=== PATIENT | female | born 1945 | race Caucasian/White ===

== ENCOUNTER 2017-03-17 11:26 | Inpatient (IN) | payer MEDICARE, OTHER ==
[~2017-03-17] VITALS: Ht 160 cm; Wt 122.0 kg
[~2017-03-17 11:26] MED LIST: ALBU8.5H5 INH; BEN25 PO; CLIN-73 PO; METF500T PO; ONDA4TAB35 PO; OXYB5TAB7 PO; PANT40TA4 PO; PRED20TA PO; REPA2TAB6 GTB; SENN-36 PO; SITA100T8 GTB
--- NOTE | 2017-03-17 12:13 | RADRPT ---
PROCEDURE: Chest x-ray CLINICAL INDICATION: Chest pain TECHNIQUE: Chest single view COMPARISON: 07/08/2015 FINDINGS: There is stable mild cardiomegaly and an sclerotic aortic calcification. The pulmonary vessels are n ormal in caliber. The lungs are clear. The costophrenic angles are sharp. The visualized bony tho rax is unremarkable. IMPRESSION: No acute cardiopulmonary disease. Stable cardiomegaly and atherosclerotic aortic calcification RPTAT: HH .Johnny Canas MD, Date Time Electronically viewed and signed by .Johnny Canas MD, on 03/17/2017 12:13 .W/
[2017-03-17 12:24] LABS: ADD SCAN DIFF NO
[2017-03-17] MEDS ORDERED: DILTIAZEM 25 MG INJ IV ONE (12:30)
[2017-03-17 12:36] LABS: CHLORIDE 97 mmol/L (97-110); SODIUM 138 mmol/L (135-144)
[2017-03-17 12:37] LABS: POTASSIUM 3.9 mmol/L (3.5-5.1)
[2017-03-17 12:39] LABS: CREATININE 0.62 mg/dl (0.44-1.00)
[2017-03-17 12:40] LABS: ANION GAP 17 (8-16); BLOOD UREA NITROGEN 17 mg/dl (7-20); CALCIUM 9.3 mg/dl (8.4-10.2); CARBON DIOXIDE 28 mmol/L (21-31); GLUCOSE 259 mg/dl (70-220)
[2017-03-17 12:43] LABS: BASOPHIL # 0.1 10^3/ul (0.0-0.1); BASOPHILS % 0.5 % (0.0-2.0); EOSINOPHILS # 0.1 10^3/ul (0.0-0.5); EOSINOPHILS % 1.4 % (0.0-7.0); HEMATOCRIT 45.6 % (37.0-47.0); HEMOGLOBIN 15.3 g/dl (12.0-16.0); LYMPHOCYTES # 1.9 10^3/ul (0.8-2.9); LYMPHOCYTES % 20.2 % (15.0-51.0); MEAN CORPUSCULAR HEMOGLOBIN 31.3 pg (29.0-33.0); MEAN CORPUSCULAR HGB CONC 33.6 g/dl (32.0-37.0); MEAN CORPUSCULAR VOLUME 93.3 fl (82.0-101.0); MEAN PLATELET VOLUME 10.5 fl (7.4-10.4); MONOCYTE # 0.5 10^3/ul (0.3-0.9); MONOCYTES % 5.5 % (0.0-11.0); NEUTROPHIL # 6.9 10^3/ul (1.6-7.5); PLATELET COUNT 287 10^3/UL (140-415); RED BLOOD COUNT 4.89 10^6/ul (4.20-5.40); RED CELL DISTRIBUTION WIDTH 12.9 % (11.5-14.5); WHITE BLOOD COUNT 9.6 10^3/ul (4.8-10.8)
[2017-03-17] MEDS: DILTIAZEM-D5W 125MG/125ML DRIP 125 ML IV SCH (12:45)
[2017-03-17 12:50] LABS: B-TYPE NATRIURETIC PEPTIDE 1130 PG/ML (0-125)
[2017-03-17 12:55] LABS: TROPONIN-I < 0.012 ng/ml (0.00-0.12)
[2017-03-17 13:01] LABS: INR 0.99; PARTIAL THROMBOPLASTIN TIME 27.8 Sec (25.0-35.0); PROTIME 13.1 Sec (12.2-14.2)
[2017-03-17] MEDS ORDERED: IPRATROPIUM (NEB) 0.5 MG/2.5 ML AMP HHN ONE (13:49)
[2017-03-17] MEDS ORDERED: LEVALBUTEROL (NEB) 1.25 MG/0.5 ML AMP HHN ONE (13:49)
[2017-03-17] MEDS ORDERED: METOPROLOL 5 MG INJ IV ONE (14:30)
[2017-03-17] MEDS ORDERED: METF500T4 PO (14:34)
[2017-03-17] MEDS ORDERED: ONDANSETRON 4 MG INJ IV PRN (15:00)
[2017-03-17] MEDS ORDERED: ACETAMINOPHEN 325 MG TAB PO PRN (15:00)
[2017-03-17] MEDS ORDERED: NACL 0.9% 3 ML SYG IV SCH (16:00)
[2017-03-17] MEDS ORDERED: LORAZEPAM 0.5 MG TAB PO PRN (16:00)
[2017-03-17] MEDS ORDERED: DOCUSATE SODIUM 100 MG CAP PO PRN (16:00)
[2017-03-17] MEDS ORDERED: ONDANSETRON 4 MG TAB PO PRN (16:00)
[2017-03-17] MEDS ORDERED: ALBUTEROL 18 GM INHALER INH PRN (16:00)
[2017-03-17] MEDS ORDERED: NITROGLYCERIN (SL) 0.4 MG TAB SL PRN (16:00)
[2017-03-17] MEDS ORDERED: GLUCOSE GEL 15 GRAM TUBE BUCCAL PRN (16:30)
[2017-03-17] MEDS ORDERED: GLUCOSE GEL 15 GRAM TUBE PO PRN ×2 (16:30)
[2017-03-17] MEDS ORDERED: GLUCAGON 1 MG INJ IM PRN (16:30)
[2017-03-17] MEDS ORDERED: DEXTROSE 50% 50 ML SYRINGE IV PRN ×2 (16:30)
--- NOTE | 2017-03-17 17:26 | HP ---
DATE OF ADMISSION: 03/17/2017 ENVIRONMENTAL PROGRAM MANAGER: Dr. Lois Dewitt, senior policy analyst. CHIEF COMPLAINT: Shortness of breath and lower extremity edema, palpitation. HISTORY OF PRESENT ILLNESS: This is a pleasant 71-year-old female with past medical history of morb id obesity, anxiety, hypertension, diabetes mellitus, COPD, questionable congestive heart failure, l ower extremity edema, who has been having worsening of the lower extremity edema and shortness of br eath. The shortness of breath is exacerbated by activity. The patient also stated that she has bee n sleeping in an inclined position, although this is not secondary to having paroxysmal nocturnal dy spnea. This is secondary to patient having low back pain, and she is not able to lie flat on her ba ck due to the pain in her lumbar region. Upon arrival to emergency room, patient's chest x-ray ic h demonstrated no acute cardiopulmonary disease, stable cardiomegaly without sclerotic aortic calcif ication. EKG was obtained which showed new onset atrial fibrillation with RVR at the rate of 142. The patient was treated with a dose of metoprolol, Xopenex, Atrovent, Cardizem. At this time, the p atient's heart rate has improved to 114. The rest of the vitals are stable. At this time, the jose ent denies having any chest pain, mild shortness of breath. No neck pain, no restricted range of mo tion. No heat and cold intolerance. No abdominal pain, nausea, vomiting, diarrhea. No change in t he color of stool. No recent travel history. No sick contact or any other discomfort. PAST MEDICAL AND SURGICAL HISTORY: As above per HPI. MEDICATIONS: 1. Albuterol. 2. Metformin. ALLERGIES: SULFA. SOCIAL HISTORY: Negative x3 for smoking, alcohol, illicit drugs. Lives at home with a roommate. REVIEW OF SYSTEMS: As above per HPI, otherwise 12 review of systems found to be negative. PHYSICAL EXAMINATION: VITAL SIGNS: Temperature 98.6, pulse 114, respiration rate 20, blood pressure 130/65, oxygen 98% on 2 liters via nasal cannula. GENERAL APPEARANCE: The patient is sitting on the edge of the bed comfortably without any acute dis tress. She is awake, alert, oriented. She is able to answer my questions properly. Body habitus i s morbidly obese with a BMI of 39.9 with 102 kilograms. EYES AND ENT: Conjunctivae and lids are normal. Pupils are normal. Extraocular muscles are normal . Hearing grossly normal. Lips and gums are normal. Oral mucosa mildly dry. NECK: Supple. Trachea is midline. No lymphadenopathy. RESPIRATORY: Effort is normal. Clear to auscultation bilaterally. CARDIOVASCULAR: Normal S1, S2. Regular rhythm and rate. No murmur, no bruits, no edema. Peripher al pulses, radial pulses palpable. Cap refill is normal. CHEST: Normal expansion of thorax during inspiration. GASTROINTESTINAL: Abdomen is soft, nontender, not distended. Bowel sounds present. No guarding, n o rebound. GENITOURINARY: Deferred. MUSCULOSKELETAL: Upper and lower extremities within normal limits. Full range of motion was positi ve nonpitting edema bilateral lower extremity, positive stasis dermatitis in bilateral lower extremi ties. NEUROLOGIC: Cranial nerves II through XII are grossly intact. PSYCHIATRIC: Normal judgment and insight. Alert and oriented x3. Mood and affect is normal. LABORATORY WORK AND IMAGING: WBC 9.6, hemoglobin 15.3, hematocrit 45.6, platelets 287. Sodium 138, potassium 3.9, chloride 97, bicarbonate 28, BUN 17, creatinine 0.62, glucose 259, calcium 9.3. Tro ponin negative. BNP 1130. PT at 13.1, INR 0.99. ASSESSMENT AND PLAN: 1. Atrial fibrillation with rapid ventricular response. The patient is status post metoprolol and Cardizem. At this time, we will start the patient on aspirin, Lovenox, metoprolol. Cardiology has been consulted. We will obtain a 2D echocardiogram. 2. Questionable congestive heart failure with elevated BNP. This also could be secondary to patien t's history of chronic obstructive pulmonary disease. Obtain 2D echocardiogram. social history has been started on Lasix. Also, will follow up cardiology recommendation for possibly starting the pa asternt on JOVI inhibitor. 3. History of chronic obstructive pulmonary disease. The patient has been placed on breathing lissett tments, Solu-Medrol. 4. Diabetes mellitus. The patient has been started on Lantus insulin sliding scale and NPH with ea ch Solu-Medrol. 5. Morbid obesity. Diet and exercise has been recommended. 6. For deep venous thrombosis prophylaxis, the patient has been placed on Lovenox. 7. For gastrointestinal prophylaxis, on proton pump inhibitor. 8. We will continue to monitor patient closely. Further recommendations, management and treatment as per clinical course. Dictated By: KATYA ROB MD PN/NTS Conf#: [id number] DID#: [id number] CC: LOIS DEWITT MD;*EndCC*
[2017-03-17 19:09] LABS: CREATINE KINASE 35 IU/L (23-200)
[2017-03-17 19:27] LABS: TROPONIN-I < 0.012 ng/ml (0.00-0.12)
--- NOTE | 2017-03-17 19:32 | ERA ---
ER Documentation Chief Complaint Date/Time DATE: 03/17/17 TIME: 19:22 Chief Complaint CAME IN VIA INTAKE FROM MD OFFICE DUE TO SOB HPI 71-year-old female presents for severe shortness of breath with exertion has been increasing for the last few days. She denies chest pain. Also had some lightheadedness and intermittent nausea without vomiting. She denies any fevers or chills. Reviewed her EMR and she has a history of congestive heart failure as well as COPD and afibrillation. ROS All systems reviewed and are negative except as per history of present illness. Medications Home Meds Active Scripts Albuterol Sulfate* (Albuterol Sulfate* HFA) 8.5 Gm Hfa.aer.ad, 1-2 PUFF INH Q4 Y for SHORTNESS OF BREATH, #1 EA Prov:WENDIE BETTS MD 07/08/15 Reported Medications Metformin* (Glucophage*) 500 Mg Tab, 500 MG PO BID, #60 TAB 03/17/17 Discontinued Scripts Diphenhydramine Hcl* (Benadryl*) 25 Mg Cap, 25 MG PO Q6, #30 CAP Prov:WENDIE BETTS MD 07/08/16 Clindamycin Hcl* (Clindamycin Hcl*) 300 Mg Capsule, 300 MG PO TID for 10 Days, CAP Prov:WENDIE BETTS MD 07/08/16 Sitagliptin* (Januvia*) 100 Mg Tab, 100 MG GTB DAILY for 30 Days Prov:DIANE MAURICE 07/13/15 Repaglinide* (Prandin*) 2 Mg Tab, 2 MG GTB AC MEALS for 30 Days Prov:DIANE MAURICE 07/13/15 Sennosides* (Senokot*) 1 Tab Tab, 1 TAB PO BID for 30 Days Prov:DIANE MAURICE 07/12/15 Pantoprazole* (Pantoprazole*) 40 Mg Tabec, 40 MG PO DAILY@06 for 30 Days Prov:DIANE MAURICE 07/12/15 Oxybutynin Chloride* (Ditropan*) 5 Mg Tab, 5 MG PO TID for 30 Days, TAB Prov:DIANE MAURICE 07/12/15 Metformin Hcl (Glucophage) 500 Mg Tab, 1000 MG PO WITH BREAKFAST DINNE for 30 Days Prov:DIANE MAURICE 07/12/15 Prednisone* (Prednisone*) 20 Mg Tab, 60 MG PO DAILY for 4 Days, TAB Prov:WENDIE BETTS MD 07/08/15 Ondansetron Hcl* (Zofran* ODT) 4 mg -ODT Tab.disper, 4 MG PO Q6 Y for NAUSEA AND /OR VOMITING, #20 TAB Prov:WENDIE BETTS MD 07/08/15 Allergies Allergies: Coded Allergies: sulfamethoxazole (Verified Allergy, Severe, SHUTS DOWN LIVER, 07/08/15) PMhx/Soc History of Surgery: Yes (C SECTION X 2. HYSTERECTOMY. SX TO RIGH "SOCKET" AREA) Anesthesia Reaction: No Hx Neurological Disorder: No Hx Respiratory Disorders: Yes Hx Cardiac Disorders: No Hx Psychiatric Problems: No Hx Miscellaneous Medical Probl: Yes (bladder problem, DM) Hx Alcohol Use: No Hx Substance Use: No Hx Tobacco Use: No Physical Exam Vitals Vital Signs Date Time Temp Pulse Resp B/P Pulse Ox O2 Delivery O2 Flow Rate FiO2 03/17/17 18:30 98.6 98 25 117/69 97 Room Air 2.0 Nasal Cannula 03/17/17 17:19 107 20 115/81 98 Nasal Cannula 2.0 03/17/17 14:41 Nasal Cannula 2.0 03/17/17 14:39 114 20 113/65 98 Nasal Cannula 2.0 03/17/17 13:59 116 24 98 Nasal Cannula 2.0 03/17/17 13:10 142 18 142/99 98 Nasal Cannula 2.0 03/17/17 12:09 Nasal Cannula 2 03/17/17 11:29 98.6 144 20 183/101 93 Physical Exam Const: [] Moderate distress, appears short of breath Head: Atraumatic Eyes: Normal Conjunctiva ENT: Normal External Ears, Nose and Mouth. Neck: Full range of motion..~ No meningismus. Resp: Mild expiratory wheezing anteriorly, decreased bibasilar breath sounds posteriorly Cardio: Irregularly irregular tachycardia no murmurs Abd: Soft,, obese non tender, non distended. Normal bowel sounds Skin: No petechiae or rashes Back: No midline or flank tenderness Ext: No cyanosis, mild bilateral pedal edema Neur: Awake and alert and oriented 3, no focal deficits Psych: Normal Mood and Affect Result Diagram: 03/17/17 1200 03/17/17 1200 Results 24 hrs Laboratory Tests Test 03/17/17 12:00 03/17/17 18:40 White Blood Count 9.610^3/ul Red Blood Count 4.8910^6/ul Hemoglobin 15.3g/dl Hematocrit 45.6% Mean Corpuscular Volume 93.3fl Mean Corpuscular Hemoglobin 31.3pg Mean Corpuscular Hemoglobin Concent 33.6g/dl Red Cell Distribution Width 12.9% Platelet Count 84809^3/UL Mean Platelet Volume 10.5fl Neutrophils % 72.0% Lymphocytes % 20.2% Monocytes % 5.5% Eosinophils % 1.4% Basophils % 0.5% Nucleated Red Blood Cells % 0.0/100WBC Neutrophils # 6.910^3/ul Lymphocytes # 1.910^3/ul Monocytes # 0.510^3/ul Eosinophils # 0.110^3/ul Basophils # 0.110^3/ul Nucleated Red Blood Cells # 0.010^3/ul Prothrombin Time 13.1Sec Prothrombin Time Ratio 1.0 INR International Normalized Ratio 0.99 Activated Partial Thromboplast Time 27.8Sec Sodium Level 138mmol/L Potassium Level 3.9mmol/L Chloride Level 97mmol/L Carbon Dioxide Level 28mmol/L Anion Gap 17 Blood Urea Nitrogen 17mg/dl Creatinine 0.62mg/dl Glucose Level 259mg/dl Calcium Level 9.3mg/dl Troponin I < 0.012ng/ml Pending B-Type Natriuretic Peptide 1130PG/ML Creatine Kinase 35IU/L Creatine Kinase Index 1.4 Creatinine Kinase MB (Mass) 0.50ng/ml Current Medications Medications (Trade) Dose Ordered Sig/Gely Route PRN Reason Start Time Stop Time Status Last Admin Dose Admin Diltiazem HCl 20 mg 20 mg ONCE ONCE IV 03/17/17 12:30 03/17/17 12:31 DC 03/17/17 12:40 Diltiazem HCl (Cardizem-D5W 125 Mg/125 ml Drip) 125 ml @ 5 mls/hr TITRATE IV 03/17/17 12:30 03/17/17 12:45 Levalbuterol (Xopenex Neb) 5 mg ONCE ONCE HHN 03/17/17 13:49 03/17/17 13:50 DC 03/17/17 13:58 Ipratropium Ranger (Atrovent 0.02% (Neb)) 0.5 mg ONCE ONCE HHN 03/17/17 13:49 03/17/17 13:50 DC 03/17/17 13:58 Metoprolol Tartrate (Lopressor) 5 mg ONCE ONCE IV 03/17/17 14:30 03/17/17 14:31 DC 03/17/17 14:34 Ondansetron HCl (Zofran Inj) 4 mg ER BRIDGE PRN IV NAUSEA AND/OR VOMITING 03/17/17 15:00 03/18/17 14:59 Acetaminophen (Tylenol Tab) 650 mg ER BRIDGE PRN PO MILD PAIN/FEVER 03/17/17 15:00 03/18/17 14:59 Albuterol (Ventolin Hfa) 1 puff Q4H PRN INH SHORTNESS OF BREATH 03/17/17 16:00 Insulin Aspart (Novolog Insulin Pen) NOVOLOG *MILD* ALGORITHM WITH MEALS BEDTIME SC 03/17/17 21:00 Insulin Glargine (Lantus) 8 unit DAILY@20 OK 03/17/17 20:00 Miscellaneous Information (* Miscellaneous Pharmacy Order) HYPOGLYCEMIA PROTOCOL w... ONCE ONCE XX 03/17/17 16:00 03/17/17 16:24 DC Miscellaneous Information (* Miscellaneous Pharmacy Order) Discontinue Glyburide, Glipizide,... ONCE ONCE XX 03/17/17 16:00 03/17/17 16:24 DC Miscellaneous Information (* Miscellaneous Pharmacy Order) Discontinue all previ... ONCE ONCE XX 03/17/17 16:00 03/17/17 16:24 DC IV Flush (NS 3 ml) 3 ml PER PROTOCOL IV 03/17/17 16:00 Lorazepam (Ativan) 0.5 mg Q8H PRN PO ANXIETY 03/17/17 16:00 Ondansetron HCl (Zofran Tab) 4 mg Q6H PRN PO NAUSEA AND/OR VOMITING 03/17/17 16:00 Methylprednisolone Sodium Succinate (Solu-Medrol) 60 mg Q8 IV 03/17/17 22:00 Furosemide (Lasix) 20 mg BID DIURETICS IV 03/17/17 21:00 03/19/17 06:01 Nitroglycerin (Nitroglycerin (Sl Tab) 0.4 Mg) 1 tab Q5M PRN SL CHEST PAIN 03/17/17 16:00 Acetaminophen (Tylenol Tab) 650 mg Q6H PRN PO PAIN LEVEL 1-3 OR FEVER 03/17/17 16:00 Docusate Sodium (Colace) 100 mg Q12H PRN PO CONSTIPATION 03/17/17 16:00 Pantoprazole (Protonix Tab) 40 mg DAILY@06 PO 03/18/17 06:00 Enoxaparin Sodium (Lovenox) 40 mg DAILY SC 03/18/17 09:00 Metoprolol Tartrate (Lopressor) 12.5 mg BID PO 03/17/17 21:00 03/17/17 21:00 DC Aspirin (Halfprin) 81 mg DAILY PO 03/18/17 09:00 Insulin Human NPH (Humulin N) 5 unit Q8 SC 03/17/17 22:00 Miscellaneous Information 1 ea NOTE XX 03/17/17 16:30 Glucose (Glutose) 15 gm Q15M PRN PO DECREASED GLUCOSE 03/17/17 16:30 Glucose (Glutose) 22.5 gm Q15M PRN PO DECREASED GLUCOSE 03/17/17 16:30 Dextrose (D50w Syringe) 25 ml Q15M PRN IV DECREASED GLUCOSE 03/17/17 16:30 Dextrose (D50w Syringe) 50 ml Q15M PRN IV DECREASED GLUCOSE 03/17/17 16:30 Glucagon (Glucagen) 1 mg Q15M PRN IM DECREASED GLUCOSE 03/17/17 16:30 Glucose (Glutose) 15 gm Q15M PRN BUCCAL DECREASED GLUCOSE 03/17/17 16:30 Metoprolol Tartrate (Lopressor) 25 mg BID PO 03/17/17 21:00 Procedures/MDM A. fib with RVR and COPD causing respiratory distress. Patient has initially treated with 20 mg of Cardizem IV followed by Cardizem bolus. Her heart rate still remained uncontrolled on 10 of Cardizem and was going back up into the 130s. She was then given 5 mg of metoprolol which helped control her heart rate. The gentleman felt better. She is also given a breathing treatment of Xopenex and Atrovent which also helped with her shortness of breath. Vital signs are significant improved in the ER as well as her condition. She will need to be admitted for monitoring for the control of atrial fibrillation. Spoke with Dr. Cannon who will be admitting. He came to the bedside to see the patient. EKG interpretation #1: Atrial fibrillation with RVR, rate of 145, indeterminate axis, no ST or T-wave changes concerning for acute ischemia. Prolonged QT of 512. groundwater monitoring technician interpretation: Initial A. fib with RVR followed by rate controlled atrial fibrillation. No other arrhythmias Chest x-ray interpretation: I see no acute process, no widened mediastinum, no pneumothorax, no infiltrates, no fractures. Critical care time 41 minutes: This includes treatment of unstable vital signs, atrial fibrillation with RVR, respiratory distress, use of vasoactive medications Cardizem, metoprolol, Cardizem drip, multiple visits the patient's bedside to reassess status, chart review, schedule with admitting Dr. and patient, this does not include any billable procedures. Departure Diagnosis: Primary Impression: COPD exacerbation Additional Impressions: Atrial fibrillation with RVR Respiratory distress Hyperglycemia due to type 2 diabetes mellitus Morbid obesity Condition: Serious YARA PETERSON DO Mar 17, 2017 19:32
[2017-03-17] MEDS ORDERED: INSULIN GLARGINE [LANtus] 3 ML PEN SC SCH (20:00)
[2017-03-17] MEDS: FUROSEMIDE 40 MG INJ IV SCH (20:41)
[2017-03-17] MEDS: INSULIN ASPART [NOVOLOG] 3 ML PEN SC SCH (20:45)
[2017-03-17] MEDS ORDERED: METOPROLOL 25 MG TAB PO SCH ×2 (21:00)
[2017-03-17] MEDS: METHYLPREDNISOLONE 125 MG INJ IV SCH (21:59)
[2017-03-17] MEDS: NPH, HUMAN INSULIN ISOPHANE 3ML VIAL SC SCH (22:56)
[2017-03-17] MEDS ORDERED: METOPROLOL 5 MG INJ IV PRN (23:00)
[2017-03-17] MEDS: DIGOXIN 500 MCG INJ IV SCH (23:08)
[2017-03-18] VITALS (11 sets, daily range): BP systolic 110–151; BP diastolic 58–88; PULSE 82–110; RESP 17–20; TEMP 98.6; Ht 160 cm; Wt 122.0 kg
[2017-03-18 00:01] LABS: CREATINE KINASE 38 IU/L (23-200)
[2017-03-18 00:13] LABS: CK-MB 0.67 ng/ml (0.0-2.4)
[2017-03-18 00:15] LABS: TROPONIN-I < 0.012 ng/ml (0.00-0.12)
[2017-03-18] MEDS: DILTIAZEM-D5W 125MG/125ML DRIP 125 ML IV SCH (01:21)
[2017-03-18] MEDS: NPH, HUMAN INSULIN ISOPHANE 3ML VIAL SC SCH ×2 (06:00→13:21)
--- NOTE | 2017-03-18 06:41 | CONS ---
DATE OF ADMISSION: 03/17/2017 DATE OF CONSULTATION: 03/17/2017 CARDIOLOGY CONSULTATION REASON FOR CONSULTATION: Shortness of breath, lower extremity edema, assess for congestive heart failure as well as atrial flutter. REQUESTING PHYSICIAN: Dr. Rob from the hospitalist service. HISTORY OF PRESENT ILLNESS: Ms. Middleton is a 71-year-old female with a history of obesity, anxiety, hypertension, diabetes mellitus, COPD, congestive heart failure, lymphedema who initially presented to primary care physician's office with complaints of shortness of breath and swelling in her legs as well as uncontrolled blood sugars. The patient was subsequently referred to the emergency department due to multiple clinical problems. Upon arrival, temperature 98.6, blood pressure 183/101, respiration rate 20, pulse 144, satting 92%. The patient's labs revealed a white count of 9.6, hemoglobin 15.3 , platelet count 287. Sodium 138, potassium 3.9, creatinine 0.6, BUN 17. Troponin negative. BNP of 1130, INR 0.99. The patient underwent a chest x-ray revealing no acute cardiopulmonary disease, stable cardiomegaly and atherosclerotic aortic calcifications. The patient's electrocardiogram revealed a rhythm most consistent with atrial flutter, atrial fibrillation, rate of 145, normal axis, normal intervals, with nonspecific ____. The patient in the emergency department was treated with metoprolol 12.5 mg p.o. b.i.d., diltiazem 10 mg IV x1, Xopenex, albuterol and started on a diltiazem drip which she remains on at this time. PAST MEDICAL HISTORY: As above in HPI. MEDICATIONS CURRENTLY IN THE HOSPITAL: 1. Lovenox 40 mg subQ daily. 2. Aspirin 81 mg daily. 3. Protonix 40 mg daily. 4. Solu-Medrol 60 mg IV q. 8. 5. Insulin sliding scale. 6. Humulin insulin 5 units subQ q. 8. 6. Lasix 20 mg IV b.i.d. 7. Metoprolol 25 mg p.o. b.i.d. 8. Ativan p.r.n. 9. Zofran p.r.n. 10. Tylenol p.r.n. 11. Colace p.r.n. 12. Diltiazem drip. ALLERGIES: TO BACTRIM. SOCIAL HISTORY: No tobacco, ETOH or illicit drug use at this time. FAMILY HISTORY: No history of sudden cardiac or early CAD. REVIEW OF SYSTEMS: As above in HPI. CONSTITUTIONAL: No fevers, chills. PULMONARY: Shortness of breath. CARDIOVASCULAR: Atrial fibrillation/atrial flutter. GASTROINTESTINAL: No vomiting. GENITOURINARY: No hematuria. MUSCULOSKELETAL: Degenerative joint disease. Lower extremity swelling. PSYCHIATRIC: Possible anxiety. NEUROLOGIC: No documented history of CVA. PHYSICAL EXAMINATION: VITAL SIGNS: Temperature 98.6, blood pressure most recently of 117/69, pulse 98 , satting 98 on 2 liters. GENERAL: The patient is alert, awake, complaining of shortness of breath and pain in her legs. NECK: JVP difficult to assess secondary to body habitus. HEART: Tachycardic, irregularly irregular rhythm, I/ systolic murmur. ABDOMEN: Obese, soft. EXTREMITIES: An appearance of most probable lymphedema. Difficult to palpate distal pulses, bilateral posterior tibial and dorsalis pedis. LABORATORIES: As above in HPI but since admit a repeat glucose returning at 309 and a repeat troponin being negative. IMAGING STUDIES: As above in HPI. No further imaging studies for my review at this time. ECG: As above in HPI. No further electrocardiograms for my review at this time. IMPRESSION: 1. Atrial fibrillation/atrial flutter with rapid ventricular response. 2. Shortness of breath, assess for congestive heart failure. 3. Lower extremity edema, assess for congestive heart failure. 4. Hypertension, reasonable control. 5. Diabetes mellitus with uncontrolled blood sugars. 6. Increased BNP, concerning for congestive heart failure. 7. History of chronic obstructive pulmonary disease. RECOMMENDATIONS: 1. At this time would admit the patient to telemetry monitoring to follow rhythm and rate control closely. 2. Would continue the patient's beta patti with up titration as necessary to improve overall systolic blood pressure control and wean off the patient's diltiazem as tolerated and we will give the patient partial digoxin load to aid in rate control. 3. Continue the patient's Lasix diuresis that is started, monitor strict I's and O's closely. 4. Check a 2D echo to further assess the patient's ejection fraction, wall motion and any major abnormalities. 5. We will initiate the patient on Lovenox systemic anticoagulation at this time for prevention of thromboembolic events in the setting of atrial fibrillation/atrial flutter. 6. Adjust the patient's insulin to improve overall blood sugar control. 7. Continue the patient's steroids, bronchodilators, but once again follow blood sugars closely on steroids. 8. Complete rule out for myocardial infarction to ensure the patient's EKG abnormalities are chronic in nature and not due to any recent acute coronary syndromes and would check venous ultrasound to rule out any associated DVT in the lower extremities. Thank you for allowing me to take part in the care of this patient. I will continue to follow along very closely with you with further recommendations to be made as the patient progresses through her inpatient hospital clinical course. Dictated By: LOIS LYNN/SUSAN Conf#: [id number] DID#: [id number] CC: KATYA ROB MD; LOIS DEWITT MD;*EndCC* MTDD
[2017-03-18] MEDS: METHYLPREDNISOLONE 125 MG INJ IV SCH ×2 (07:31→13:11)
[2017-03-18] MEDS: PANTOPRAZOLE (EC) 40 MG TAB PO SCH (07:33)
[2017-03-18] MEDS: FUROSEMIDE 40 MG INJ IV SCH ×2 (07:34→18:01)
[2017-03-18] MEDS: DIGOXIN 500 MCG INJ IV SCH (07:35)
[2017-03-18] MEDS: INSULIN ASPART [NOVOLOG] 3 ML PEN SC SCH ×6 (08:14→21:00)
[2017-03-18 08:48] LABS: ADD SCAN DIFF NO
[2017-03-18 08:52] LABS: ABNORMAL IP MESSAGE 1; BASOPHILS % 0.1 % (0.0-2.0); HEMATOCRIT 42.4 % (37.0-47.0); HEMOGLOBIN 13.8 g/dl (12.0-16.0); LYMPHOCYTES # 0.6 10^3/ul (0.8-2.9); LYMPHOCYTES % 7.8 % (15.0-51.0); MEAN CORPUSCULAR HEMOGLOBIN 30.7 pg (29.0-33.0); MEAN CORPUSCULAR HGB CONC 32.5 g/dl (32.0-37.0); MEAN CORPUSCULAR VOLUME 94.2 fl (82.0-101.0); MEAN PLATELET VOLUME 10.8 fl (7.4-10.4); MONOCYTE # 0.1 10^3/ul (0.3-0.9); MONOCYTES % 0.7 % (0.0-11.0); NEUTROPHIL # 6.9 10^3/ul (1.6-7.5); PLATELET COUNT 249 10^3/UL (140-415); RED CELL DISTRIBUTION WIDTH 13.1 % (11.5-14.5); WHITE BLOOD COUNT 7.6 10^3/ul (4.8-10.8)
[2017-03-18] MEDS ORDERED: ENOXAPARIN 100 MG/ML SYG SC SCH (09:00)
[2017-03-18] MEDS ORDERED: ENOXAPARIN 40 MG/0.4 ML SYG SC SCH (09:00)
[2017-03-18 09:08] LABS: CALCIUM 8.8 mg/dl (8.4-10.2); CREATININE 0.6 mg/dl (0.44-1.00); MAGNESIUM 1.5 mg/dl (1.7-2.5); POTASSIUM 4.3 mmol/L (3.5-5.1)
[2017-03-18 09:37] LABS: THYROID STIMULATING HORMONE 0.95 MIU/L (0.465-4.680)
[2017-03-18] MEDS: METOPROLOL 25 MG TAB PO SCH ×2 (09:54→21:21)
[2017-03-18] MEDS: ASPIRIN (EC) 81 MG TAB PO SCH (09:55)
--- NOTE | 2017-03-18 12:35 | RADRPT ---
Vent Rate: 107 bpm RR Interval: 0 msec MO Interval: 0 msec QRS Duration: 86 msec QT Interval: 292 msec QTC Interval: 389 msec P-R-T [place]: 0 - -19 - -46 degrees Atrial fibrillation with rapid ventricular response with premature ventricular or aberrantly conducted complexes Nonspecific T wave abnormality , probably digitalis effect Abnormal ECG Electronically Signed By: Jesus Handy [id number]
--- NOTE | 2017-03-18 14:49 | PN ---
Date/Time of Note Date/Time of Note DATE: 03/18/17 TIME: 14:45 Assessment/Plan VTE Prophylaxis VTE Prophylaxis Intervention: other Lines/Catheters IV C[facility]ter Type (from [facility] Peripheral IV Assessment/Plan Chief Complaint/Hosp Course ASSESSMENT AND PLAN: 1. Atrial fibrillation with rapid ventricular response. The patient is status post metoprolol and Cardizem drip. Continue aspirin, metoprolol. Cardiology has been consulted. Follow-up 2D echocardiogram. Will transition Lovenox to Eliquis 2. Questionable congestive heart failure with elevated BNP. This also could be secondary to patient's history of chronic obstructive pulmonary disease. Obtain 2D echocardiogram. social history has been started on Lasix. Also, will follow up cardiology recommendation for possibly starting the patient on JOVI inhibitor. 3. History of chronic obstructive pulmonary disease. The patient has been placed on breathing treatments, 4. Diabetes mellitus. The patient has been started on Lantus insulin sliding scale and Novolin pre-meals 5. Morbid obesity. Diet and exercise has been recommended. 6. For deep venous thrombosis prophylaxis, the patient has been placed on Lovenox. 7. For gastrointestinal prophylaxis, on proton pump inhibitor. We will continue to monitor patient closely. Further recommendations, management and treatment as per clinical course. Disposition: Follow-up cardiology recommendations, patient still on Cardizem drip and her glucose level should be better optimize Problems: Subjective 24 Hr Interval Summary Free Text/Dictation Patient denies of any chest pain or palpitation Breathing status has improved significantly On Cardizem drip as per cardiology Exam/Review of Systems Vital Signs Vitals Vital Signs Date Time Temp Pulse Resp B/P Pulse Ox O2 Delivery O2 Flow Rate FiO2 03/18/17 12:25 89 03/18/17 11:26 98.8 18 110/58 95 03/18/17 04:00 Nasal Cannula 2.0 Exam General: The patient is morbidly obese, Not in acute distress. HEENT: Atraumatic, normocephalic. The pupils are equal and round . Neck: Supple with full range of motion. Chest: Normal expansion of the thorax during inspiration Lungs: Clear to auscultation bilaterally Heart: Normal S1-S2, Regular rhythm and rate. Abdomen: Soft , nontender, nondistended , bowel sounds are present. Extremities: Bilateral lower extremity status dermatitis, nonpitting edema no cyanosis Neurologic: Normal mental status,The patient is awake, alert and oriented . Results Result Diagram: 03/18/17 0735 03/18/17 0735 Results 24 hrs Laboratory Tests Test 03/17/17 18:40 03/17/17 20:38 03/17/17 23:25 03/18/17 07:35 Creatine Kinase 35 38 Creatine Kinase Index 1.4 1.8 Creatinine Kinase MB (Mass) 0.50 0.67 Troponin I < 0.012 < 0.012 Bedside Glucose 309 H White Blood Count 7.6 # Red Blood Count 4.50 Hemoglobin 13.8 Hematocrit 42.4 Mean Corpuscular Volume 94.2 Mean Corpuscular Hemoglobin 30.7 Mean Corpuscular Hemoglobin Concent 32.5 Red Cell Distribution Width 13.1 Platelet Count 249 Mean Platelet Volume 10.8 H Neutrophils % 91.0 H Lymphocytes % 7.8 L Monocytes % 0.7 Eosinophils % 0.0 Basophils % 0.1 Nucleated Red Blood Cells % 0.0 Neutrophils # 6.9 Lymphocytes # 0.6 L Monocytes # 0.1 L Eosinophils # 0.0 Basophils # 0.0 Nucleated Red Blood Cells # 0.0 Sodium Level 133 L Potassium Level 4.3 Chloride Level 99 Carbon Dioxide Level 28 Anion Gap 10 # Blood Urea Nitrogen 19 Creatinine 0.60 Glucose Level 416 #*H Hemoglobin A1c 9.4 H Calcium Level 8.8 Magnesium Level 1.5 L Triglycerides Level 64 Cholesterol Level 180 LDL Cholesterol, Calculated 122 HDL Cholesterol 45 Cholesterol/HDL Ratio 4.0 Thyroid Stimulating Hormone (TSH) 0.950 Test 03/18/17 07:46 03/18/17 07:55 03/18/17 12:07 Bedside Glucose 410 *H 421 *H 328 H Medications Medications Current Medications Albuterol (Ventolin Hfa) 1 puff Q4H PRN INH SHORTNESS OF BREATH; Start at 16:00 Insulin Glargine (Lantus) 8 unit DAILY@20 SC Last administered on 03/17/17t 20: 46; Admin Dose 8 UNIT; Start 03/17/17 at 20:00 Lorazepam (Ativan) 0.5 mg Q8H PRN PO ANXIETY; Start 03/17/17 at 16:00 Ondansetron HCl (Zofran Tab) 4 mg Q6H PRN PO NAUSEA AND/OR VOMITING; Start at 16:00 Methylprednisolone Sodium Succinate (Solu-Medrol) 60 mg Q8 IV Last administered on 03/18/17 13:11; Admin Dose 60 MG; Start 03/17/17 at 22:00 Nitroglycerin (Nitroglycerin (Sl Tab) 0.4 Mg) 1 tab Q5M PRN SL CHEST PAIN; Start 03/17/17 at 16:00 Acetaminophen (Tylenol Tab) 650 mg Q6H PRN PO PAIN LEVEL 1-3 OR FEVER; Start at 16:00 Docusate Sodium (Colace) 100 mg Q12H PRN PO CONSTIPATION; Start 03/17/17 at 16: 00 Pantoprazole (Protonix Tab) 40 mg DAILY@06 PO Last administered on 03/18/17 07 :33; Admin Dose 40 MG; Start 03/18/17 at 06:00 Aspirin (Halfprin) 81 mg DAILY PO Last administered on 03/18/17 09:55; Admin Dose 81 MG; Start 03/18/17 at 09:00 Insulin Human NPH (Humulin N) 5 unit Q8 SC Last administered on 03/18/17 13:21 ; Admin Dose 5 UNIT; Start 03/17/17 at 22:00 Miscellaneous Information 1 ea NOTE XX ; Start 03/17/17 at 16:30 Glucose (Glutose) 15 gm Q15M PRN PO DECREASED GLUCOSE; Start 03/17/17 at 16:30 Glucose (Glutose) 22.5 gm Q15M PRN PO DECREASED GLUCOSE; Start 03/17/17 at 16: 30 Dextrose (D50w Syringe) 25 ml Q15M PRN IV DECREASED GLUCOSE; Start 03/17/17 at 16:30 Dextrose (D50w Syringe) 50 ml Q15M PRN IV DECREASED GLUCOSE; Start 03/17/17 at 16:30 Glucagon (Glucagen) 1 mg Q15M PRN IM DECREASED GLUCOSE; Start 03/17/17 at 16:30 Glucose (Glutose) 15 gm Q15M PRN BUCCAL DECREASED GLUCOSE; Start 03/17/17 at 16 :30 Metoprolol Tartrate (Lopressor) 50 mg BID PO Last administered on 03/18/17 09: 54; Admin Dose 50 MG; Start 03/18/17 at 09:00 Metoprolol Tartrate (Lopressor) 5 mg Q4H PRN IV HR>110 Hold SBP<100; Start at 23:00 Enoxaparin Sodium (Lovenox) 100 mg Q12 SC Last administered on 03/18/17t 09:56 ; Admin Dose 100 MG; Start 03/18/17 at 09:00 Diphenhydramine HCl (Benadryl) 25 mg Q8H PRN IV pruritis/insomnia; Start at 23:30 KATYA RBO MD Mar 18, 2017 14:49
[2017-03-18] MEDS ORDERED: MAGNESIUM SULFATE 3 GM in SOD CHLORIDE 0.9% 100 ML IVPB ONE (15:00)
[2017-03-18] MEDS ORDERED: INSULIN REGULAR 10 ML INJ SC SCH (17:35)
--- NOTE | 2017-03-18 18:36 | CONS ---
Date/Time of Note Date/Time of Note DATE: 03/18/17 TIME: 18:29 Assessment/Plan Assessment/Plan Chief Complaint/Hosp Course IMPRESSION: 1. Atrial fibrillation/atrial flutter with rapid ventricular response. 2. Shortness of breath, assess for congestive heart failure.-negative troponin x 3 3. Lower extremity edema, assess for congestive heart failure. 4. Hypertension, reasonable control. 5. Diabetes mellitus with uncontrolled blood sugars. 6. Increased BNP, concerning for congestive heart failure. 7. History of chronic obstructive pulmonary disease. Recc: -Tele -serial ecg's -Continue abx's and f/u cx data -Continue lasix diuresis -Contnue BB -Continue asa -will f/u echo -continue transition to eliquis from lovenox Problems: Consultation Date/Type/Reason Admit Date/Time Mar 17, 2017 at 14:39 Initial Consult Date 03/17/2017 Type of Consultation: Cardiology Reason for Consultation sob/af Referring Provider: KATYA ROB MD Exam/Review of Systems Vital Signs Vitals Vital Signs Date Time Temp Pulse Resp B/P Pulse Ox O2 Delivery O2 Flow Rate FiO2 03/18/17 17:18 82 03/18/17 15:45 98.0 19 131/88 94 03/18/17 08:00 Nasal Cannula 2.0 Exam Review of Systems: CONSTITUTIONAL: No fevers, chills. PULMONARY: improving sob CARDIOVASCULAR: No current chest pain/palpitations GASTROINTESTINAL: No nausea/vomiting. GENITOURINARY: No hematuria/dysuria. MUSCULOSKELETAL: No myagias/arthalgias. PSYCHIATRIC: The patient denies depression. NEUROLOGIC: No weakness Constitutional: alert, oriented Psych: no complaints Head: normocephalic ENMT: mucosa pink and moist Neck: jvd (9 cm water) Respiratory: diminished breath sounds Cardiovascular: regular rate and rhythm Gastrointestinal: non-tender, soft Musculoskeletal: muscle tone (normal) Extremities: normal pulses Neurological: other (none) Results Result Diagram: 03/18/17 0735 03/18/17 0735 Results 24 hrs Laboratory Tests Test 03/17/17 18:40 03/17/17 20:38 03/17/17 23:25 03/18/17 07:35 Creatine Kinase 35 38 Creatine Kinase Index 1.4 1.8 Creatinine Kinase MB (Mass) 0.50 0.67 Troponin I < 0.012 < 0.012 Bedside Glucose 309 H White Blood Count 7.6 # Red Blood Count 4.50 Hemoglobin 13.8 Hematocrit 42.4 Mean Corpuscular Volume 94.2 Mean Corpuscular Hemoglobin 30.7 Mean Corpuscular Hemoglobin Concent 32.5 Red Cell Distribution Width 13.1 Platelet Count 249 Mean Platelet Volume 10.8 H Neutrophils % 91.0 H Lymphocytes % 7.8 L Monocytes % 0.7 Eosinophils % 0.0 Basophils % 0.1 Nucleated Red Blood Cells % 0.0 Neutrophils # 6.9 Lymphocytes # 0.6 L Monocytes # 0.1 L Eosinophils # 0.0 Basophils # 0.0 Nucleated Red Blood Cells # 0.0 Sodium Level 133 L Potassium Level 4.3 Chloride Level 99 Carbon Dioxide Level 28 Anion Gap 10 # Blood Urea Nitrogen 19 Creatinine 0.60 Glucose Level 416 #*H Hemoglobin A1c 9.4 H Calcium Level 8.8 Magnesium Level 1.5 L Triglycerides Level 64 Cholesterol Level 180 LDL Cholesterol, Calculated 122 HDL Cholesterol 45 Cholesterol/HDL Ratio 4.0 Thyroid Stimulating Hormone (TSH) 0.950 Test 03/18/17 07:46 03/18/17 07:55 03/18/17 12:07 03/18/17 17:39 Bedside Glucose 410 *H 421 *H 328 H 380 H Medications Medications Current Medications Albuterol (Ventolin Hfa) 1 puff Q4H PRN INH SHORTNESS OF BREATH; Start at 16:00 Lorazepam (Ativan) 0.5 mg Q8H PRN PO ANXIETY; Start 03/17/17 at 16:00 Ondansetron HCl (Zofran Tab) 4 mg Q6H PRN PO NAUSEA AND/OR VOMITING; Start at 16:00 Nitroglycerin (Nitroglycerin (Sl Tab) 0.4 Mg) 1 tab Q5M PRN SL CHEST PAIN; Start 03/17/17 at 16:00 Acetaminophen (Tylenol Tab) 650 mg Q6H PRN PO PAIN LEVEL 1-3 OR FEVER; Start at 16:00 Docusate Sodium (Colace) 100 mg Q12H PRN PO CONSTIPATION; Start 03/17/17 at 16: 00 Pantoprazole (Protonix Tab) 40 mg DAILY@06 PO Last administered on 03/18/17t 07 :33; Admin Dose 40 MG; Start 03/18/17 at 06:00 Aspirin (Halfprin) 81 mg DAILY PO Last administered on 03/18/17 09:55; Admin Dose 81 MG; Start 03/18/17 at 09:00 Miscellaneous Information 1 ea NOTE XX ; Start 03/17/17 at 16:30 Glucose (Glutose) 15 gm Q15M PRN PO DECREASED GLUCOSE; Start 03/17/17 at 16:30 Glucose (Glutose) 22.5 gm Q15M PRN PO DECREASED GLUCOSE; Start 03/17/17 at 16: 30 Dextrose (D50w Syringe) 25 ml Q15M PRN IV DECREASED GLUCOSE; Start 03/17/17 at 16:30 Dextrose (D50w Syringe) 50 ml Q15M PRN IV DECREASED GLUCOSE; Start 03/17/17 at 16:30 Glucagon (Glucagen) 1 mg Q15M PRN IM DECREASED GLUCOSE; Start 03/17/17 at 16:30 Glucose (Glutose) 15 gm Q15M PRN BUCCAL DECREASED GLUCOSE; Start 03/17/17 at 16 :30 Metoprolol Tartrate (Lopressor) 50 mg BID PO Last administered on 03/18/17 09: 54; Admin Dose 50 MG; Start 03/18/17 at 09:00 Metoprolol Tartrate (Lopressor) 5 mg Q4H PRN IV HR>110 Hold SBP<100; Start at 23:00 Enoxaparin Sodium (Lovenox) 100 mg Q12 SC Last administered on 03/18/17 09:56 ; Admin Dose 100 MG; Start 03/18/17 at 09:00; Stop 03/18/17 at 22:00 Diphenhydramine HCl (Benadryl) 25 mg Q8H PRN IV pruritis/insomnia; Start at 23:30 Insulin Glargine (Lantus) 15 unit DAILY@20 SC ; Start 03/18/17 at 20:00 Apixaban (Eliquis) 5 mg BID PO ; Start 03/18/17 at 21:00 LOIS DEWITT Mar 18, 2017 18:35
--- NOTE | 2017-03-18 19:34 | RADRPT ---
Echocardiogram Report Patient Name: ZAC THOMAS Gender: Female Date: 1945 Study Date: 18-Mar-2017 Director Of Player Personnel: Britta Nevarez [facility] Location: [id number] Ref. Physician: KATYA ROB Quality: Adequate Procedures: Transthoracic echocardiogram with complete 2D, M-Mode, and doppler examination. Indications: Atrial Fibrillation. 2D/M Mode Doppler Measurement Value Normal Ranges Measurement Value Normal Ranges LVIDd 2D 4.7 3.5 - 5.6 cm AV Peak Vito 1.6 m/sec LVIDs 2D 2.5 2.1 - 4.1 cm AV Peak PG 9.7 mmHg LVPWd 2D 1.3 0.6 - 1.1 cm LVOT Peak Vito 1.1 m/sec IVSd 2D 1.3 0.6 - 1.1 cm LVOT Peak PG 4.4 mmHg AoR Diam 2D 2.9 2.0 - 3.7 cm TR Peak Vito 2.5 m/sec EDV 2D 102.9 cm3 TR Peak PG 24.1 mmHg ESV 2D 15.4 cm3 RVSP 39.0 mmHg LA Dimen 2D 3.9 2.3 - 4.0 cm Findings Left Ventricle: Normal left ventricular systolic function. Normal left ventricular cavity size. Moderate concentric left ventricular hypertrophy. Ejection fraction is visually estimated at 60 %. Tissue Doppler/Mitral Doppler indices are indeterminate in this study due to the presence of atrial fibrillation. Right Ventricle: Normal right ventricular size. Normal right ventricular systolic function. Left Atrium: The left atrium is normal in size. Right Atrium: There is mild enlargement of right atrium. Mitral Valve: Mitral valve leaflets appear mildly thickened. Mild mitral annular calcification. Trace mitral regurgitation. Aortic Valve: No significant aortic stenosis or insufficiency. Aortic cusps appear mildly calcified. Tricuspid Valve: Normal appearance of the tricuspid valve. Estimated peak PA systolic pressure 39 mmHg. There is mild tricuspid regurgitation. Pulmonic Valve: Normal pulmonic valve appearance. There is trace pulmonic regurgitation. Pericardium: Normal pericardium with no significant pericardial effusion. Aorta: Normal aortic root. IVC: Dilated IVC without respiratory collapse consistent with elevated right atrial pressure. Conclusions 1.Normal left ventricular systolic function. Normal left ventricular cavity size. Moderate concentric left ventricular hypertrophy. Ejection fraction is visually estimated at 60 %. Tissue Doppler/Mitral Doppler indices are indeterminate in this study due to the presence of atrial fibrillation. 2.There is mild enlargement of right atrium. 3.Trace mitral regurgitation. 4.Estimated peak PA systolic pressure 39 mmHg. There is mild tricuspid regurgitation. 5.There is trace pulmonic regurgitation. Electronically Signed By: Pablo Sheffield 18-Mar-2017 19:33:25 -0700 Patient Name: ZAC THOMAS Study Date: 18-Mar-2017 [id number]
[2017-03-18] MEDS ORDERED: INSULIN GLARGINE [LANtus] 3 ML PEN SC SCH (20:00)
[2017-03-18] MEDS: DIPHENHYDRAMINE 50 MG INJ IV PRN (21:17)
[2017-03-18] MEDS: APIXABAN 5 MG TABLET PO SCH (21:21)
[2017-03-19] VITALS (12 sets, daily range): BP systolic 104–134; BP diastolic 61–85; PULSE 83–155; RESP 18–20
[2017-03-19] MEDS: PANTOPRAZOLE (EC) 40 MG TAB PO SCH (05:46)
[2017-03-19] MEDS: FUROSEMIDE 40 MG INJ IV SCH (05:47)
[2017-03-19 08:16] LABS: ADD SCAN DIFF NO
[2017-03-19 08:18] LABS: BASOPHILS % 0.1 % (0.0-2.0); HEMATOCRIT 40.9 % (37.0-47.0); HEMOGLOBIN 13.4 g/dl (12.0-16.0); LYMPHOCYTES % 6.3 % (15.0-51.0); MEAN CORPUSCULAR HEMOGLOBIN 30.8 pg (29.0-33.0); MEAN CORPUSCULAR HGB CONC 32.8 g/dl (32.0-37.0); MEAN PLATELET VOLUME 10.8 fl (7.4-10.4); MONOCYTE # 0.6 10^3/ul (0.3-0.9); MONOCYTES % 3.9 % (0.0-11.0); NEUTROPHIL # 13.7 10^3/ul (1.6-7.5); NEUTROPHILS % 89.2 % (39.0-77.0); PLATELET COUNT 250 10^3/UL (140-415); RED BLOOD COUNT 4.35 10^6/ul (4.20-5.40); RED CELL DISTRIBUTION WIDTH 13.1 % (11.5-14.5); WHITE BLOOD COUNT 15.4 10^3/ul (4.8-10.8)
[2017-03-19 08:35] LABS: CALCIUM 8.9 mg/dl (8.4-10.2); CREATININE 0.6 mg/dl (0.44-1.00); MAGNESIUM 2.1 mg/dl (1.7-2.5); POTASSIUM 3.7 mmol/L (3.5-5.1)
[2017-03-19] MEDS: INSULIN ASPART [NOVOLOG] 3 ML PEN SC SCH ×7 (08:53→22:05)
[2017-03-19] MEDS: ASPIRIN (EC) 81 MG TAB PO SCH (08:59)
[2017-03-19] MEDS: APIXABAN 5 MG TABLET PO SCH ×2 (08:59→21:57)
[2017-03-19] MEDS: METOPROLOL 25 MG TAB PO SCH ×2 (08:59→21:57)
--- NOTE | 2017-03-19 09:15 | PN ---
Date/Time of Note Date/Time of Note DATE: 03/19/17 TIME: 09:12 Assessment/Plan VTE Prophylaxis VTE Prophylaxis Intervention: SCD's Lines/Catheters IV [facility] (from [facility] Urinary Cath still in place: Yes Assessment/Plan Chief Complaint/Hosp Course Assessment and plan 1. A. fib with RVR. Patient status post metoprolol and Cardizem drip. Continue on beta patti per channel sales director for conditions. Echocardiogram with preserved ejection fraction. Continue on eliquis 2. Suspect CHF. Patient with EF of 60%. Continue optimization with cardiovascular medications 3. History of COPD. Continue on bronchodilators as needed. provide with O2 as needed as well. 4. Diabetes. With uncontrolled blood sugar at this time. Basal insulin and standing insulin adjusted. 5. Morbid obesity. Weight reduction advised DVT prophylaxis: eliquis Disposition and plan: Still noted with elevated blood glucose. Insulin adjusted. Await for stability. Discharge him medically stable Discussed plan of care with Dr. Carrizales Problems: Subjective 24 Hr Interval Summary Free Text/Dictation Comfortable at this time. Does report better breathing. Still noted with high blood sugar Exam/Review of Systems Vital Signs Vitals Vital Signs Date Time Temp Pulse Resp B/P Pulse Ox O2 Delivery O2 Flow Rate FiO2 03/19/17 08:08 88 03/19/17 07:52 97.7 20 117/74 94 03/18/17 22:20 Nasal Cannula 2.0 Intake and Output 03/18/17 03/18/17 03/19/17 15:00 23:00 07:00 Intake Total 300 ml 500 ml Output Total 2000 ml Balance 300 ml -1500 ml Exam Constitutional: alert, obese, oriented Psych: nl mood/affect Head: normocephalic Eyes: nl conjunctiva Neck: non-tender, supple, No jvd Respiratory: clear to auscultation Cardiovascular: other Gastrointestinal: soft Extremities: edema (bilateral lower extremities) Neurological: DIRECTOR OF FOOD AND NUTRITION II-XII intact, nl mental status, nl speech Skin: nl turgor Results Result Diagram: 03/19/1712 03/19/17 0712 Results 24 hrs Laboratory Tests Test 03/18/17 12:07 03/18/17 17:39 03/18/17 18:00 03/18/17 19:51 Bedside Glucose 328 H 380 H 396 H Glucose Level 440 *H Test 03/19/17 07:12 03/19/17 08:49 White Blood Count 15.4 #H Red Blood Count 4.35 Hemoglobin 13.4 Hematocrit 40.9 Mean Corpuscular Volume 94.0 Mean Corpuscular Hemoglobin 30.8 Mean Corpuscular Hemoglobin Concent 32.8 Red Cell Distribution Width 13.1 Platelet Count 250 Mean Platelet Volume 10.8 H Neutrophils % 89.2 H Lymphocytes % 6.3 L Monocytes % 3.9 Eosinophils % 0.0 Basophils % 0.1 Nucleated Red Blood Cells % 0.0 Neutrophils # 13.7 H Lymphocytes # 1.0 Monocytes # 0.6 Eosinophils # 0.0 Basophils # 0.0 Nucleated Red Blood Cells # 0.0 Sodium Level 136 Potassium Level 3.7 Chloride Level 99 Carbon Dioxide Level 30 Anion Gap 11 Blood Urea Nitrogen 24 H Creatinine 0.60 Glucose Level 388 H Calcium Level 8.9 Magnesium Level 2.1 Bedside Glucose 355 H Medications Medications Current Medications Albuterol (Ventolin Hfa) 1 puff Q4H PRN INH SHORTNESS OF BREATH; Start at 16:00 Lorazepam (Ativan) 0.5 mg Q8H PRN PO ANXIETY; Start 03/17/17 at 16:00 Ondansetron HCl (Zofran Tab) 4 mg Q6H PRN PO NAUSEA AND/OR VOMITING; Start at 16:00 Nitroglycerin (Nitroglycerin (Sl Tab) 0.4 Mg) 1 tab Q5M PRN SL CHEST PAIN; Start 03/17/17 at 16:00 Acetaminophen (Tylenol Tab) 650 mg Q6H PRN PO PAIN LEVEL 1-3 OR FEVER; Start at 16:00 Docusate Sodium (Colace) 100 mg Q12H PRN PO CONSTIPATION; Start 03/17/17 at 16: 00 Pantoprazole (Protonix Tab) 40 mg DAILY@06 PO Last administered on 03/19/17 05 :46; Admin Dose 40 MG; Start 03/18/17 at 06:00 Aspirin (Halfprin) 81 mg DAILY PO Last administered on 03/19/17 08:59; Admin Dose 81 MG; Start 03/18/17 at 09:00 Miscellaneous Information 1 ea NOTE XX ; Start 03/17/17 at 16:30 Glucose (Glutose) 15 gm Q15M PRN PO DECREASED GLUCOSE; Start 03/17/17 at 16:30 Glucose (Glutose) 22.5 gm Q15M PRN PO DECREASED GLUCOSE; Start 03/17/17 at 16: 30 Dextrose (D50w Syringe) 25 ml Q15M PRN IV DECREASED GLUCOSE; Start 03/17/17 at 16:30 Dextrose (D50w Syringe) 50 ml Q15M PRN IV DECREASED GLUCOSE; Start 03/17/17 at 16:30 Glucagon (Glucagen) 1 mg Q15M PRN IM DECREASED GLUCOSE; Start 03/17/17 at 16:30 Glucose (Glutose) 15 gm Q15M PRN BUCCAL DECREASED GLUCOSE; Start 03/17/17 at 16 :30 Metoprolol Tartrate (Lopressor) 50 mg BID PO Last administered on 03/19/17 08: 59; Admin Dose 50 MG; Start 03/18/17 at 09:00 Metoprolol Tartrate (Lopressor) 5 mg Q4H PRN IV HR>110 Hold SBP<100; Start at 23:00 Diphenhydramine HCl (Benadryl) 25 mg Q8H PRN IV pruritis/insomnia Last administered on 03/18/17 21:17; Admin Dose 25 MG; Start 03/17/17 at 23:30 Insulin Glargine (Lantus) 15 unit DAILY@20 SC Last administered on 03/18/17 21 :23; Admin Dose 15 UNIT; Start 03/18/17 at 20:00 Apixaban (Eliquis) 5 mg BID PO Last administered on 03/19/17 08:59; Admin Dose 5 MG; Start 03/18/17 at 21:00 DIANE MAURICE Mar 19, 2017 09:15
[2017-03-19] MEDS: ACETAMINOPHEN 325 MG TAB PO PRN (13:27)
--- NOTE | 2017-03-19 15:59 | CONS ---
Date/Time of Note Date/Time of Note DATE: 03/19/17 TIME: 15:55 Assessment/Plan Assessment/Plan Chief Complaint/Hosp Course IMPRESSION: 1. Atrial fibrillation/atrial flutter with rapid ventricular response.-now rate controlld 2. Shortness of breath, assess for congestive heart failure.-negative troponin x 3 3. Lower extremity edema, assess for congestive heart failure. 4. Hypertension, reasonable control. 5. Diabetes mellitus with uncontrolled blood sugars. 6. Increased BNP, concerning for congestive heart failure. Nl EF by echo and thus diastolic CHF acute on chronic 7. History of chronic obstructive pulmonary disease. Recc: -Tele -serial ecg's -Continue abx's and f/u cx data -Resume lasix diuresis -Contnue BB -Continue asa -continue teliquis Problems: Consultation Date/Type/Reason Admit Date/Time Mar 17, 2017 at 14:39 Initial Consult Date 03/17/2017 Type of Consultation: Cardiology Reason for Consultation AF/AFl/CHF Referring Provider: KATYA ROB MD Exam/Review of Systems Vital Signs Vitals Vital Signs Date Time Temp Pulse Resp B/P Pulse Ox O2 Delivery O2 Flow Rate FiO2 03/19/17 15:43 97.7 84 20 117/61 97 03/19/17 08:10 Nasal Cannula 2.0 Intake and Output 03/18/17 03/18/17 03/19/17 15:00 23:00 07:00 Intake Total 300 ml 500 ml Output Total 2000 ml Balance 300 ml -1500 ml Exam Review of Systems: CONSTITUTIONAL: No fevers, chills. PULMONARY: No sob CARDIOVASCULAR: No chest pain/palpitations GASTROINTESTINAL: No nausea/vomiting. GENITOURINARY: No hematuria/dysuria. MUSCULOSKELETAL: No myagias/arthalgias. PSYCHIATRIC: The patient denies depression. NEUROLOGIC: No weakness Constitutional: alert, oriented Psych: no complaints Head: normocephalic ENMT: mucosa pink and moist Neck: jvd (9 cm water), supple Respiratory: diminished breath sounds (at bases/B) Cardiovascular: regular rate and rhythm Gastrointestinal: non-tender, soft Musculoskeletal: muscle tone (normal) Extremities: edema (none) Neurological: other (No focal deficits) Results Result Diagram: 03/19/17 0712 03/19/17 0712 Results 24 hrs Laboratory Tests Test 03/18/17 17:39 03/18/17 18:00 03/18/17 19:51 03/19/17 07:12 Bedside Glucose 380 H 396 H Glucose Level 440 *H 388 H White Blood Count 15.4 #H Red Blood Count 4.35 Hemoglobin 13.4 Hematocrit 40.9 Mean Corpuscular Volume 94.0 Mean Corpuscular Hemoglobin 30.8 Mean Corpuscular Hemoglobin Concent 32.8 Red Cell Distribution Width 13.1 Platelet Count 250 Mean Platelet Volume 10.8 H Neutrophils % 89.2 H Lymphocytes % 6.3 L Monocytes % 3.9 Eosinophils % 0.0 Basophils % 0.1 Nucleated Red Blood Cells % 0.0 Neutrophils # 13.7 H Lymphocytes # 1.0 Monocytes # 0.6 Eosinophils # 0.0 Basophils # 0.0 Nucleated Red Blood Cells # 0.0 Sodium Level 136 Potassium Level 3.7 Chloride Level 99 Carbon Dioxide Level 30 Anion Gap 11 Blood Urea Nitrogen 24 H Creatinine 0.60 Calcium Level 8.9 Magnesium Level 2.1 Test 03/19/17 08:49 03/19/17 11:47 Bedside Glucose 355 H 241 H Medications Medications Current Medications Albuterol (Ventolin Hfa) 1 puff Q4H PRN INH SHORTNESS OF BREATH; Start at 16:00 Lorazepam (Ativan) 0.5 mg Q8H PRN PO ANXIETY; Start 03/17/17 at 16:00 Ondansetron HCl (Zofran Tab) 4 mg Q6H PRN PO NAUSEA AND/OR VOMITING; Start at 16:00 Nitroglycerin (Nitroglycerin (Sl Tab) 0.4 Mg) 1 tab Q5M PRN SL CHEST PAIN; Start 03/17/17 at 16:00 Acetaminophen (Tylenol Tab) 650 mg Q6H PRN PO PAIN LEVEL 1-3 OR FEVER Last administered on 03/19/17 13:27; Admin Dose 650 MG; Start 03/17/17 at 16:00 Docusate Sodium (Colace) 100 mg Q12H PRN PO CONSTIPATION; Start 03/17/17 at 16: 00 Pantoprazole (Protonix Tab) 40 mg DAILY@06 PO Last administered on 03/19/17 05 :46; Admin Dose 40 MG; Start 03/18/17 at 06:00 Aspirin (Halfprin) 81 mg DAILY PO Last administered on 03/19/17 08:59; Admin Dose 81 MG; Start 03/18/17 at 09:00 Miscellaneous Information 1 ea NOTE XX ; Start 03/17/17 at 16:30 Glucose (Glutose) 15 gm Q15M PRN PO DECREASED GLUCOSE; Start 03/17/17 at 16:30 Glucose (Glutose) 22.5 gm Q15M PRN PO DECREASED GLUCOSE; Start 03/17/17 at 16: 30 Dextrose (D50w Syringe) 25 ml Q15M PRN IV DECREASED GLUCOSE; Start 03/17/17 at 16:30 Dextrose (D50w Syringe) 50 ml Q15M PRN IV DECREASED GLUCOSE; Start 03/17/17 at 16:30 Glucagon (Glucagen) 1 mg Q15M PRN IM DECREASED GLUCOSE; Start 03/17/17 at 16:30 Glucose (Glutose) 15 gm Q15M PRN BUCCAL DECREASED GLUCOSE; Start 03/17/17 at 16 :30 Metoprolol Tartrate (Lopressor) 50 mg BID PO Last administered on 03/19/17 08: 59; Admin Dose 50 MG; Start 03/18/17 at 09:00 Metoprolol Tartrate (Lopressor) 5 mg Q4H PRN IV HR>110 Hold SBP<100; Start at 23:00 Diphenhydramine HCl (Benadryl) 25 mg Q8H PRN IV pruritis/insomnia Last administered on 03/18/17 21:17; Admin Dose 25 MG; Start 03/17/17 at 23:30 Apixaban (Eliquis) 5 mg BID PO Last administered on 03/19/17 08:59; Admin Dose 5 MG; Start 03/18/17 at 21:00 Insulin Glargine (Lantus) 21 unit DAILY@20 SC ; Start 03/19/17 at 20:00 LOIS DEWITT Mar 19, 2017 15:58
[2017-03-19] MEDS: FUROSEMIDE 20 MG INJ IV SCH (17:40)
[2017-03-19] MEDS: INSULIN GLARGINE [LANtus] 3 ML PEN SC SCH (22:03)
[2017-03-19] MEDS: DIPHENHYDRAMINE 50 MG INJ IV PRN (22:12)
[2017-03-20] VITALS (11 sets, daily range): BP systolic 107–132; BP diastolic 61–75; PULSE 78–116; RESP 17–19
[2017-03-20] MEDS: FUROSEMIDE 20 MG INJ IV SCH ×2 (06:08→17:31)
[2017-03-20] MEDS: PANTOPRAZOLE (EC) 40 MG TAB PO SCH (06:08)
[2017-03-20 07:43] LABS: ADD SCAN DIFF NO
[2017-03-20 07:47] LABS: BASOPHILS % 0.2 % (0.0-2.0); EOSINOPHILS % 0.3 % (0.0-7.0); HEMATOCRIT 44.6 % (37.0-47.0); HEMOGLOBIN 14.5 g/dl (12.0-16.0); LYMPHOCYTES # 2.9 10^3/ul (0.8-2.9); LYMPHOCYTES % 29.3 % (15.0-51.0); MEAN CORPUSCULAR HGB CONC 32.5 g/dl (32.0-37.0); MEAN CORPUSCULAR VOLUME 95.5 fl (82.0-101.0); MEAN PLATELET VOLUME 10.8 fl (7.4-10.4); MONOCYTE # 0.5 10^3/ul (0.3-0.9); MONOCYTES % 5.3 % (0.0-11.0); NEUTROPHIL # 6.4 10^3/ul (1.6-7.5); NEUTROPHILS % 64.4 % (39.0-77.0); PLATELET COUNT 249 10^3/UL (140-415); RED BLOOD COUNT 4.67 10^6/ul (4.20-5.40); RED CELL DISTRIBUTION WIDTH 13.5 % (11.5-14.5); WHITE BLOOD COUNT 9.9 10^3/ul (4.8-10.8)
[2017-03-20 08:00] LABS: CALCIUM 8.5 mg/dl (8.4-10.2); CREATININE 0.62 mg/dl (0.44-1.00); POTASSIUM 3.3 mmol/L (3.5-5.1)
[2017-03-20] MEDS: INSULIN ASPART [NOVOLOG] 3 ML PEN SC SCH ×7 (08:00→20:12)
[2017-03-20] MEDS: APIXABAN 5 MG TABLET PO SCH ×2 (08:31→20:22)
[2017-03-20] MEDS: ASPIRIN (EC) 81 MG TAB PO SCH (08:31)
[2017-03-20] MEDS: METOPROLOL 25 MG TAB PO SCH ×2 (08:32→20:21)
[2017-03-20] MEDS ORDERED: POTASSIUM CHLORIDE (SR) 20 MEQ TAB PO STA (09:40)
[2017-03-20] MEDS ORDERED: ASPI-664 PO (09:41)
[2017-03-20] MEDS ORDERED: NOVO3I SC (09:41)
[2017-03-20] MEDS ORDERED: FURO-110 PO (09:41)
[2017-03-20] MEDS ORDERED: ALBU18HF INH (09:41)
[2017-03-20] MEDS ORDERED: LANT3I SC (09:41)
[2017-03-20] MEDS ORDERED: METO-448 PO (09:41)
--- NOTE | 2017-03-20 09:46 | PDOCDIS ---
Discharge Instructions DIAGNOSIS Discharge Diagnosis: 1. afib with RVR 2. CHF 3. COPD 4. diabetes 5. morbid obesity CONDITION Patient Condition: Stable HOME CARE INSTRUCTIONS: Special Diet: carb controlled FOLLOW UP/APPOINTMENTS Appointments 1. Follow up with your primary care provider in one week 2. Follow up with your line therapist in 1 week DIANE MAURICE Mar 20, 2017 09:46
--- NOTE | 2017-03-20 15:14 | CONS ---
Date/Time of Note Date/Time of Note DATE: 03/20/17 TIME: 15:11 Assessment/Plan Assessment/Plan Chief Complaint/Hosp Course IMPRESSION: 1. Atrial fibrillation/atrial flutter with rapid ventricular response.-now rate controlld 2. Shortness of breath, assess for congestive heart failure.-negative troponin x 3 3. Lower extremity edema, assess for congestive heart failure. 4. Hypertension, reasonable control. 5. Diabetes mellitus with uncontrolled blood sugars. 6. Increased BNP, concerning for congestive heart failure. Nl EF by echo and thus diastolic CHF acute on chronic 7. History of chronic obstructive pulmonary disease. Recc: -Tele -serial ecg's -Continue abx's and f/u cx data -Continue lasix diuresis -Contnue BB with slight increase and give digoxin load to improve HR -Start PO digoxin starting tomorrow AM -Continue asa -continue eliquis Problems: Consultation Date/Type/Reason Admit Date/Time Mar 17, 2017 at 14:39 Initial Consult Date 03/17/2017 Type of Consultation: Cardiology Reason for Consultation CHF/AF Referring Provider: KATYA ROB MD Exam/Review of Systems Vital Signs Vitals Vital Signs Date Time Temp Pulse Resp B/P Pulse Ox O2 Delivery O2 Flow Rate FiO2 03/20/17 12:19 90 03/20/17 11:37 98.3 18 107/61 92 03/20/17 08:00 Nasal Cannula 2.0 Intake and Output 03/19/17 03/19/17 03/20/17 15:00 23:00 07:00 Intake Total 720 ml 400 ml Output Total 1500 ml 1500 ml Balance -780 ml -1100 ml Exam Review of Systems: CONSTITUTIONAL: No fevers, chills. PULMONARY: improving sob CARDIOVASCULAR: No chest pain/palpitations GASTROINTESTINAL: No nausea/vomiting. GENITOURINARY: No hematuria/dysuria. MUSCULOSKELETAL: No myagias/arthalgias. PSYCHIATRIC: The patient denies depression. NEUROLOGIC: No weakness Constitutional: alert, oriented Psych: no complaints Head: normocephalic ENMT: mucosa pink and moist Neck: jvd, supple Respiratory: diminished breath sounds (at bases/B) Cardiovascular: irregular rhythm Gastrointestinal: non-tender, soft Musculoskeletal: muscle tone (normal) Extremities: edema (none) Neurological: other (No focal deficits) Results Result Diagram: 03/20/17 0616 03/20/17 0616 Results 24 hrs Laboratory Tests Test 03/19/17 17:28 03/19/17 20:20 03/20/17 03:47 03/20/17 06:16 Bedside Glucose 166 328 H 185 White Blood Count 9.9 # Red Blood Count 4.67 Hemoglobin 14.5 Hematocrit 44.6 Mean Corpuscular Volume 95.5 Mean Corpuscular Hemoglobin 31.0 Mean Corpuscular Hemoglobin Concent 32.5 Red Cell Distribution Width 13.5 Platelet Count 249 Mean Platelet Volume 10.8 H Neutrophils % 64.4 Lymphocytes % 29.3 Monocytes % 5.3 Eosinophils % 0.3 Basophils % 0.2 Nucleated Red Blood Cells % 0.0 Neutrophils # 6.4 Lymphocytes # 2.9 Monocytes # 0.5 Eosinophils # 0.0 Basophils # 0.0 Nucleated Red Blood Cells # 0.0 Sodium Level 138 Potassium Level 3.3 L Chloride Level 99 Carbon Dioxide Level 34 H Anion Gap 8 Blood Urea Nitrogen 29 H Creatinine 0.62 Glucose Level 172 # Calcium Level 8.5 Test 03/20/17 07:57 03/20/17 12:06 Bedside Glucose 156 126 Medications Medications Current Medications Albuterol (Ventolin Hfa) 1 puff Q4H PRN INH SHORTNESS OF BREATH; Start at 16:00 Lorazepam (Ativan) 0.5 mg Q8H PRN PO ANXIETY; Start 03/17/17 at 16:00 Ondansetron HCl (Zofran Tab) 4 mg Q6H PRN PO NAUSEA AND/OR VOMITING; Start at 16:00 Nitroglycerin (Nitroglycerin (Sl Tab) 0.4 Mg) 1 tab Q5M PRN SL CHEST PAIN; Start 03/17/17 at 16:00 Acetaminophen (Tylenol Tab) 650 mg Q6H PRN PO PAIN LEVEL 1-3 OR FEVER Last administered on 03/19/17 13:27; Admin Dose 650 MG; Start 03/17/17 at 16:00 Docusate Sodium (Colace) 100 mg Q12H PRN PO CONSTIPATION; Start 03/17/17 at 16: 00 Pantoprazole (Protonix Tab) 40 mg DAILY@06 PO Last administered on 03/20/17 06 :08; Admin Dose 40 MG; Start 03/18/17 at 06:00 Aspirin (Halfprin) 81 mg DAILY PO Last administered on 03/20/17 08:31; Admin Dose 81 MG; Start 03/18/17 at 09:00 Miscellaneous Information 1 ea NOTE XX ; Start 03/17/17 at 16:30 Glucose (Glutose) 15 gm Q15M PRN PO DECREASED GLUCOSE; Start 03/17/17 at 16:30 Glucose (Glutose) 22.5 gm Q15M PRN PO DECREASED GLUCOSE; Start 03/17/17 at 16: 30 Dextrose (D50w Syringe) 25 ml Q15M PRN IV DECREASED GLUCOSE; Start 03/17/17 at 16:30 Dextrose (D50w Syringe) 50 ml Q15M PRN IV DECREASED GLUCOSE; Start 03/17/17 at 16:30 Glucagon (Glucagen) 1 mg Q15M PRN IM DECREASED GLUCOSE; Start 03/17/17 at 16:30 Glucose (Glutose) 15 gm Q15M PRN BUCCAL DECREASED GLUCOSE; Start 03/17/17 at 16 :30 Metoprolol Tartrate (Lopressor) 50 mg BID PO Last administered on 03/20/17 08: 32; Admin Dose 50 MG; Start 03/18/17 at 09:00 Metoprolol Tartrate (Lopressor) 5 mg Q4H PRN IV HR>110 Hold SBP<100; Start at 23:00 Diphenhydramine HCl (Benadryl) 25 mg Q8H PRN IV pruritis/insomnia Last administered on 03/19/17 22:12; Admin Dose 25 MG; Start 03/17/17 at 23:30 Apixaban (Eliquis) 5 mg BID PO Last administered on 03/20/17 08:31; Admin Dose 5 MG; Start 03/18/17 at 21:00 Insulin Glargine (Lantus) 21 unit DAILY@20 SC Last administered on 03/19/17 22 :03; Admin Dose 21 UNIT; Start 03/19/17 at 20:00 LOIS DEWITT Mar 20, 2017 15:14
[2017-03-20] MEDS ORDERED: DIGOXIN 500 MCG INJ IV ONE (15:30)
[2017-03-20] MEDS: INSULIN GLARGINE [LANtus] 3 ML PEN SC SCH (20:16)
[2017-03-20] MEDS: DIGOXIN 500 MCG INJ IV SCH (20:34)
[2017-03-20] MEDS: DIPHENHYDRAMINE 50 MG INJ IV PRN (21:50)
[2017-03-21] VITALS (12 sets, daily range): BP systolic 110–143; BP diastolic 61–79; PULSE 76–92; RESP 18–20
[2017-03-21] MEDS: DIGOXIN 500 MCG INJ IV SCH (04:01)
[2017-03-21] MEDS: FUROSEMIDE 20 MG INJ IV SCH ×2 (05:39→16:52)
[2017-03-21] MEDS: PANTOPRAZOLE (EC) 40 MG TAB PO SCH (05:39)
[2017-03-21 07:40] LABS: ADD SCAN DIFF NO
[2017-03-21 07:43] LABS: BASOPHILS % 0.4 % (0.0-2.0); EOSINOPHILS # 0.1 10^3/ul (0.0-0.5); EOSINOPHILS % 0.8 % (0.0-7.0); HEMATOCRIT 45.7 % (37.0-47.0); HEMOGLOBIN 14.7 g/dl (12.0-16.0); LYMPHOCYTES # 2.3 10^3/ul (0.8-2.9); LYMPHOCYTES % 25.2 % (15.0-51.0); MEAN CORPUSCULAR HEMOGLOBIN 30.6 pg (29.0-33.0); MEAN CORPUSCULAR HGB CONC 32.2 g/dl (32.0-37.0); MEAN CORPUSCULAR VOLUME 95.2 fl (82.0-101.0); MEAN PLATELET VOLUME 10.5 fl (7.4-10.4); MONOCYTE # 0.6 10^3/ul (0.3-0.9); MONOCYTES % 6.9 % (0.0-11.0); NEUTROPHIL # 6.1 10^3/ul (1.6-7.5); NEUTROPHILS % 66.4 % (39.0-77.0); PLATELET COUNT 250 10^3/UL (140-415); RED CELL DISTRIBUTION WIDTH 13.3 % (11.5-14.5); WHITE BLOOD COUNT 9.2 10^3/ul (4.8-10.8)
[2017-03-21] MEDS: INSULIN ASPART [NOVOLOG] 3 ML PEN SC SCH ×7 (08:00→20:27)
[2017-03-21] MEDS: ASPIRIN (EC) 81 MG TAB PO SCH (08:04)
[2017-03-21] MEDS: APIXABAN 5 MG TABLET PO SCH ×2 (08:04→20:23)
[2017-03-21 08:05] LABS: CALCIUM 8.3 mg/dl (8.4-10.2); CREATININE 0.61 mg/dl (0.44-1.00); POTASSIUM 3.9 mmol/L (3.5-5.1)
[2017-03-21] MEDS: METOPROLOL 25 MG TAB PO SCH ×2 (08:05→20:23)
--- NOTE | 2017-03-21 14:49 | PN ---
Date/Time of Note Date/Time of Note DATE: 03/21/17 TIME: 14:45 Assessment/Plan VTE Prophylaxis VTE Prophylaxis Intervention: other Lines/Catheters IV [facility] Type [facility]from [facility] Urinary Cath still in place: No Assessment/Plan Chief Complaint/Hosp Course Assessment 1. Atrial fibrillation with rapid ventricular response now rate controlled 2. History of COPD 3. Probable obstructive sleep apnea 4. Likely diastolic dysfunction with preserved ejection fraction 5. Diabetes mellitus poorly controlled Plan 1. Diabetic education 2. Cardiology clearance for discharge 3. Follow-up with Dr. Farrar as an outpatient for primary and endocrinology 4. Follow-up with ct for outpatient pulmonary function testing and sleep study Disposition Anticipate discharge later today or tomorrow Problems: Subjective 24 Hr Interval Summary Free Text/Dictation Patient states she feels better today Less pedal edema No chest pain or palpitations Exam/Review of Systems Vital Signs Vitals Vital Signs Date Time Temp Pulse Resp B/P Pulse Ox O2 Delivery O2 Flow Rate FiO2 03/21/17 12:30 76 03/21/17 11:37 97.8 18 117/67 95 03/20/17 20:00 Nasal Cannula 2.0 Intake and Output 03/20/17 03/20/17 03/21/17 15:00 23:00 07:00 Intake Total 800 ml 450 ml Output Total 1900 ml Balance -1100 ml 450 ml Exam GENERAL: Elderly lady comfortable at rest no acute distress VITAL SIGNS: per chart NECK: Supple. No JVD or lymphadenopathy. CARDIAC EXAM: S1, S2. No added sounds or murmurs. CHEST: Diminished air entry both lung bases ABDOMEN: Soft, nontender. No guarding or rebound. EXTREMITIES: No cyanosis, clubbing +1 NEUROLOGIC: Generalized weakness. No focal deficits. Results Result Diagram: 03/21/17 0708 03/21/17 0708 Results 24 hrs Laboratory Tests Test 03/20/17 17:26 03/20/17 19:54 03/21/17 07:08 03/21/17 07:50 Bedside Glucose 141 144 128 White Blood Count 9.2 Red Blood Count 4.80 Hemoglobin 14.7 Hematocrit 45.7 Mean Corpuscular Volume 95.2 Mean Corpuscular Hemoglobin 30.6 Mean Corpuscular Hemoglobin Concent 32.2 Red Cell Distribution Width 13.3 Platelet Count 250 Mean Platelet Volume 10.5 H Neutrophils % 66.4 Lymphocytes % 25.2 Monocytes % 6.9 Eosinophils % 0.8 Basophils % 0.4 Nucleated Red Blood Cells % 0.0 Neutrophils # 6.1 Lymphocytes # 2.3 Monocytes # 0.6 Eosinophils # 0.1 Basophils # 0.0 Nucleated Red Blood Cells # 0.0 Sodium Level 138 Potassium Level 3.9 Chloride Level 100 Carbon Dioxide Level 33 H Anion Gap 9 Blood Urea Nitrogen 24 H Creatinine 0.61 Glucose Level 134 Calcium Level 8.3 L Test 03/21/17 11:34 Bedside Glucose 140 Medications Medications Current Medications Albuterol (Ventolin Hfa) 1 puff Q4H PRN INH SHORTNESS OF BREATH; Start at 16:00 Lorazepam (Ativan) 0.5 mg Q8H PRN PO ANXIETY; Start 03/17/17 at 16:00 Ondansetron HCl (Zofran Tab) 4 mg Q6H PRN PO NAUSEA AND/OR VOMITING; Start at 16:00 Nitroglycerin (Nitroglycerin (Sl Tab) 0.4 Mg) 1 tab Q5M PRN SL CHEST PAIN; Start 03/17/17 at 16:00 Acetaminophen (Tylenol Tab) 650 mg Q6H PRN PO PAIN LEVEL 1-3 OR FEVER Last administered on 03/19/17 13:27; Admin Dose 650 MG; Start 03/17/17 at 16:00 Docusate Sodium (Colace) 100 mg Q12H PRN PO CONSTIPATION; Start 03/17/17 at 16: 00 Pantoprazole (Protonix Tab) 40 mg DAILY@06 PO Last administered on 03/21/17 05: 39; Admin Dose 40 MG; Start 03/18/17 at 06:00 Aspirin (Halfprin) 81 mg DAILY PO Last administered on 03/21/17 08:04; Admin Dose 81 MG; Start 03/18/17 at 09:00 Miscellaneous Information 1 ea NOTE XX ; Start 03/17/17 at 16:30 Glucose (Glutose) 15 gm Q15M PRN PO DECREASED GLUCOSE; Start 03/17/17 at 16:30 Glucose (Glutose) 22.5 gm Q15M PRN PO DECREASED GLUCOSE; Start 03/17/17 at 16: 30 Dextrose (D50w Syringe) 25 ml Q15M PRN IV DECREASED GLUCOSE; Start 03/17/17 at 16:30 Dextrose (D50w Syringe) 50 ml Q15M PRN IV DECREASED GLUCOSE; Start 03/17/17 at 16:30 Glucagon (Glucagen) 1 mg Q15M PRN IM DECREASED GLUCOSE; Start 03/17/17 at 16:30 Glucose (Glutose) 15 gm Q15M PRN BUCCAL DECREASED GLUCOSE; Start 03/17/17 at 16 :30 Metoprolol Tartrate (Lopressor) 50 mg BID PO Last administered on 03/21/17 08: 05; Admin Dose 50 MG; Start 03/18/17 at 09:00 Metoprolol Tartrate (Lopressor) 5 mg Q4H PRN IV HR>110 Hold SBP<100; Start at 23:00 Diphenhydramine HCl (Benadryl) 25 mg Q8H PRN IV pruritis/insomnia Last administered on 03/20/17 21:50; Admin Dose 25 MG; Start 03/17/17 at 23:30 Apixaban (Eliquis) 5 mg BID PO Last administered on 03/21/17 08:04; Admin Dose 5 MG; Start 03/18/17 at 21:00 Insulin Glargine (Lantus) 21 unit DAILY@20 SC Last administered on 03/20/17 20 :16; Admin Dose 21 UNIT; Start 03/19/17 at 20:00 OLGA HARDWICK MD, [facility] March 21, 2017 14:49
--- NOTE | 2017-03-21 19:01 | CONS ---
Date/Time of Note Date/Time of Note DATE: 03/21/17 TIME: 18:54 Assessment/Plan Assessment/Plan Chief Complaint/Hosp Course IMPRESSION: 1. Atrial fibrillation/atrial flutter with rapid ventricular response.-now rate controlld 2. Shortness of breath, assess for congestive heart failure.-negative troponin x 3 3. Lower extremity edema, assess for congestive heart failure. 4. Hypertension, reasonable control. 5. Diabetes mellitus with uncontrolled blood sugars. 6. Increased BNP, concerning for congestive heart failure. Nl EF by echo and thus diastolic CHF acute on chronic 7. History of chronic obstructive pulmonary disease. Recc: -Tele -serial ecg's -Continue abx's and f/u cx data -Continue lasix diuresis -Contnue BB -Po digoxin and will start dilt cd for possible synergism in improving HR control -Continue asa -continue eliquis Problems: Consultation Date/Type/Reason Admit Date/Time Mar 17, 2017 at 14:39 Initial Consult Date 03/17/2017 Type of Consultation: Cardiology Reason for Consultation AF/CHF Referring Provider: KATYA ROB MD Exam/Review of Systems Vital Signs Vitals Vital Signs Date Time Temp Pulse Resp B/P Pulse Ox O2 Delivery O2 Flow Rate FiO2 03/21/17 16:33 80 03/21/17 16:05 97.8 18 112/68 95 03/20/17 20:00 Nasal Cannula 2.0 Intake and Output 03/20/17 03/20/17 03/21/17 15:00 23:00 07:00 Intake Total 800 ml 450 ml Output Total 1900 ml Balance -1100 ml 450 ml Exam Review of Systems: CONSTITUTIONAL: No fevers, chills. PULMONARY: No sob CARDIOVASCULAR: No chest pain/palpitations GASTROINTESTINAL: No nausea/vomiting. GENITOURINARY: No hematuria/dysuria. MUSCULOSKELETAL: No myagias/arthalgias. PSYCHIATRIC: The patient denies depression. NEUROLOGIC: No weakness Constitutional: alert Psych: no complaints Head: normocephalic ENMT: mucosa pink and moist Neck: jvd (9 cm water), supple Respiratory: diminished breath sounds Cardiovascular: irregular rhythm Gastrointestinal: non-tender, soft Extremities: pitting pedal edema Neurological: other (no focal deficits) Results Result Diagram: 03/21/17 0708 03/21/17 0708 Results 24 hrs Laboratory Tests Test 03/20/17 19:54 03/21/17 07:08 03/21/17 07:50 03/21/17 11:34 Bedside Glucose 144 128 140 White Blood Count 9.2 Red Blood Count 4.80 Hemoglobin 14.7 Hematocrit 45.7 Mean Corpuscular Volume 95.2 Mean Corpuscular Hemoglobin 30.6 Mean Corpuscular Hemoglobin Concent 32.2 Red Cell Distribution Width 13.3 Platelet Count 250 Mean Platelet Volume 10.5 H Neutrophils % 66.4 Lymphocytes % 25.2 Monocytes % 6.9 Eosinophils % 0.8 Basophils % 0.4 Nucleated Red Blood Cells % 0.0 Neutrophils # 6.1 Lymphocytes # 2.3 Monocytes # 0.6 Eosinophils # 0.1 Basophils # 0.0 Nucleated Red Blood Cells # 0.0 Sodium Level 138 Potassium Level 3.9 Chloride Level 100 Carbon Dioxide Level 33 H Anion Gap 9 Blood Urea Nitrogen 24 H Creatinine 0.61 Glucose Level 134 Calcium Level 8.3 L Test 03/21/17 16:32 Bedside Glucose 189 Medications Medications Current Medications Albuterol (Ventolin Hfa) 1 puff Q4H PRN INH SHORTNESS OF BREATH; Start at 16:00 Lorazepam (Ativan) 0.5 mg Q8H PRN PO ANXIETY; Start 03/17/17 at 16:00 Ondansetron HCl (Zofran Tab) 4 mg Q6H PRN PO NAUSEA AND/OR VOMITING; Start at 16:00 Nitroglycerin (Nitroglycerin (Sl Tab) 0.4 Mg) 1 tab Q5M PRN SL CHEST PAIN; Start 03/17/17 at 16:00 Acetaminophen (Tylenol Tab) 650 mg Q6H PRN PO PAIN LEVEL 1-3 OR FEVER Last administered on 03/19/17 13:27; Admin Dose 650 MG; Start 03/17/17 at 16:00 Docusate Sodium (Colace) 100 mg Q12H PRN PO CONSTIPATION; Start 03/17/17 at 16: 00 Pantoprazole (Protonix Tab) 40 mg DAILY@06 PO Last administered on 03/21/17 05: 39; Admin Dose 40 MG; Start 03/18/17 at 06:00 Aspirin (Halfprin) 81 mg DAILY PO Last administered on 03/21/17 08:04; Admin Dose 81 MG; Start 03/18/17 at 09:00 Miscellaneous Information 1 ea NOTE XX ; Start 03/17/17 at 16:30 Glucose (Glutose) 15 gm Q15M PRN PO DECREASED GLUCOSE; Start 03/17/17 at 16:30 Glucose (Glutose) 22.5 gm Q15M PRN PO DECREASED GLUCOSE; Start 03/17/17 at 16: 30 Dextrose (D50w Syringe) 25 ml Q15M PRN IV DECREASED GLUCOSE; Start 03/17/17 at 16:30 Dextrose (D50w Syringe) 50 ml Q15M PRN IV DECREASED GLUCOSE; Start 03/17/17 at 16:30 Glucagon (Glucagen) 1 mg Q15M PRN IM DECREASED GLUCOSE; Start 03/17/17 at 16:30 Glucose (Glutose) 15 gm Q15M PRN BUCCAL DECREASED GLUCOSE; Start 03/17/17 at 16 :30 Metoprolol Tartrate (Lopressor) 50 mg BID PO Last administered on 03/21/17 08: 05; Admin Dose 50 MG; Start 03/18/17 at 09:00 Metoprolol Tartrate (Lopressor) 5 mg Q4H PRN IV HR>110 Hold SBP<100; Start at 23:00 Diphenhydramine HCl (Benadryl) 25 mg Q8H PRN IV pruritis/insomnia Last administered on 03/20/17 21:50; Admin Dose 25 MG; Start 03/17/17 at 23:30 Apixaban (Eliquis) 5 mg BID PO Last administered on 03/21/17 08:04; Admin Dose 5 MG; Start 03/18/17 at 21:00 Insulin Glargine (Lantus) 21 unit DAILY@20 SC Last administered on 03/20/17 20 :16; Admin Dose 21 UNIT; Start 03/19/17 at 20:00 LOIS DEWITT March 21, 2017 19:01
[2017-03-21] MEDS: ACETAMINOPHEN 325 MG TAB PO PRN (20:16)
[2017-03-21] MEDS: INSULIN GLARGINE [LANtus] 3 ML PEN SC SCH (20:25)
[2017-03-21] MEDS: DILTIAZEM (CD) 180 MG CAP PO SCH (20:37)
[2017-03-21] MEDS: DIPHENHYDRAMINE 50 MG INJ IV PRN (22:18)
[2017-03-22] VITALS (10 sets, daily range): BP systolic 116–138; BP diastolic 57–80; PULSE 60–89; RESP 16–18
[2017-03-22] MEDS: FUROSEMIDE 20 MG INJ IV SCH ×2 (06:00→18:00)
[2017-03-22] MEDS: PANTOPRAZOLE (EC) 40 MG TAB PO SCH (06:34)
[2017-03-22 07:21] LABS: ADD SCAN DIFF NO
[2017-03-22 07:37] LABS: BASOPHILS % 0.2 % (0.0-2.0); EOSINOPHILS # 0.2 10^3/ul (0.0-0.5); EOSINOPHILS % 2.5 % (0.0-7.0); HEMATOCRIT 44.4 % (37.0-47.0); HEMOGLOBIN 14.5 g/dl (12.0-16.0); LYMPHOCYTES # 2.1 10^3/ul (0.8-2.9); LYMPHOCYTES % 25.1 % (15.0-51.0); MEAN CORPUSCULAR HEMOGLOBIN 31.2 pg (29.0-33.0); MEAN CORPUSCULAR HGB CONC 32.7 g/dl (32.0-37.0); MEAN CORPUSCULAR VOLUME 95.5 fl (82.0-101.0); MEAN PLATELET VOLUME 10.7 fl (7.4-10.4); MONOCYTE # 0.4 10^3/ul (0.3-0.9); NEUTROPHIL # 5.6 10^3/ul (1.6-7.5); NEUTROPHILS % 66.7 % (39.0-77.0); PLATELET COUNT 249 10^3/UL (140-415); RED BLOOD COUNT 4.65 10^6/ul (4.20-5.40); RED CELL DISTRIBUTION WIDTH 13.2 % (11.5-14.5); WHITE BLOOD COUNT 8.4 10^3/ul (4.8-10.8)
[2017-03-22 07:42] LABS: POTASSIUM 3.8 mmol/L (3.5-5.1)
[2017-03-22 07:44] LABS: CREATININE 0.62 mg/dl (0.44-1.00)
[2017-03-22 07:45] LABS: CALCIUM 8.4 mg/dl (8.4-10.2)
[2017-03-22] MEDS: APIXABAN 5 MG TABLET PO SCH (08:15)
[2017-03-22] MEDS: METOPROLOL 25 MG TAB PO SCH (08:15)
[2017-03-22] MEDS: ASPIRIN (EC) 81 MG TAB PO SCH (08:15)
[2017-03-22] MEDS: INSULIN ASPART [NOVOLOG] 3 ML PEN SC SCH ×6 (08:20→18:05)
[2017-03-22] MEDS: DILTIAZEM (CD) 180 MG CAP PO SCH (11:32)
[2017-03-22] MEDS ORDERED: DIGOXIN 0.125 MG TAB PO SCH (13:00)
--- NOTE | 2017-03-22 15:51 | CONS ---
Date/Time of Note Date/Time of Note DATE: 03/22/17 TIME: 15:49 Assessment/Plan Assessment/Plan Additional Assessment/Plan 1. Atrial fibrillation/atrial flutter with rapid ventricular response.-now rate controlled mostly, will monitor clinically. 2. Shortness of breath, assess for congestive heart failure.-negative troponin x 3 - improved. 3. Lower extremity edema, assess for congestive heart failure - responding to therapy now, good output. 4. Hypertension, reasonable control. BP in better range. 5. Diabetes mellitus with uncontrolled blood sugars. Con't insulin Rx. 6. Increased BNP, concerning for congestive heart failure. Nl EF by echo and thus diastolic CHF acute on chronic 7. History of chronic obstructive pulmonary disease. Consultation Date/Type/Reason Admit Date/Time Mar 17, 2017 at 14:39 Initial Consult Date Type of Consultation: Cardiology Referring Provider: KATYA ROB MD 24 HR Interval Summary Free Text/Dictation NO acute change- con't a. fib Rx - rate controlled ROS: No fever, no chills, no nausea, no vomiting, no diarrhea/constipation No recent weight changes No chest pain, no PND, no orthopnea No dizziness, blurred vision No thirst, no heat or cold intolerance Exam/Review of Systems Vital Signs Vitals Vital Signs Date Time Temp Pulse Resp B/P Pulse Ox O2 Delivery O2 Flow Rate FiO2 03/22/17 13:04 74 03/22/17 11:33 97.5 16 116/57 95 03/21/17 22:00 Nasal Cannula 2.0 Intake and Output 03/21/17 03/21/17 03/22/17 15:00 23:00 07:00 Intake Total 1120 ml 400 ml Balance 1120 ml 400 ml Exam General: WN/WD/NAD, AOx 2-3 HEENT: Unicetric/atraumatic/EOMI (follow commands) NECK: JVD elevated, no thyromegaly Lymph: no lymphadenopathy HEART: IRregular with no S3, II/ systolic murmur at apex LUNGS: Coarse sounds ABD: soft, NT, ND, +BS : Intact Neuro: non focal SKIN: chronic changes EXT: trace edema Results Result Diagram: 03/22/17 0627 03/22/17 0637 Results 24 hrs Laboratory Tests Test 03/21/17 16:32 03/21/17 20:20 03/22/17 02:30 03/22/17 06:27 Bedside Glucose 189 200 249 H White Blood Count 8.4 Red Blood Count 4.65 Hemoglobin 14.5 Hematocrit 44.4 Mean Corpuscular Volume 95.5 Mean Corpuscular Hemoglobin 31.2 Mean Corpuscular Hemoglobin Concent 32.7 Red Cell Distribution Width 13.2 Platelet Count 249 Mean Platelet Volume 10.7 H Neutrophils % 66.7 Lymphocytes % 25.1 Monocytes % 5.0 Eosinophils % 2.5 Basophils % 0.2 Nucleated Red Blood Cells % 0.0 Neutrophils # 5.6 Lymphocytes # 2.1 Monocytes # 0.4 Eosinophils # 0.2 Basophils # 0.0 Nucleated Red Blood Cells # 0.0 Test 03/22/17 06:37 03/22/17 07:45 03/22/17 11:34 Sodium Level 140 Potassium Level 3.8 Chloride Level 98 Carbon Dioxide Level 33 H Anion Gap 13 Blood Urea Nitrogen 21 H Creatinine 0.62 Glucose Level 203 Calcium Level 8.4 Bedside Glucose 203 171 Medications Medications Current Medications Albuterol (Ventolin Hfa) 1 puff Q4H PRN INH SHORTNESS OF BREATH; Start at 16:00 Lorazepam (Ativan) 0.5 mg Q8H PRN PO ANXIETY; Start 03/17/17 at 16:00 Ondansetron HCl (Zofran Tab) 4 mg Q6H PRN PO NAUSEA AND/OR VOMITING; Start at 16:00 Nitroglycerin (Nitroglycerin (Sl Tab) 0.4 Mg) 1 tab Q5M PRN SL CHEST PAIN; Start 03/17/17 at 16:00 Acetaminophen (Tylenol Tab) 650 mg Q6H PRN PO PAIN LEVEL 1-3 OR FEVER Last administered on 03/21/17 20:16; Admin Dose 650 MG; Start 03/17/17 at 16:00 Docusate Sodium (Colace) 100 mg Q12H PRN PO CONSTIPATION Last administered on 08:15; Admin Dose 100 MG; Start 03/17/17 at 16:00 Pantoprazole (Protonix Tab) 40 mg DAILY@06 PO Last administered on 03/22/17 06: 34; Admin Dose 40 MG; Start 03/18/17 at 06:00 Aspirin (Halfprin) 81 mg DAILY PO Last administered on 03/22/17 08:15; Admin Dose 81 MG; Start 03/18/17 at 09:00 Miscellaneous Information 1 ea NOTE XX ; Start 03/17/17 at 16:30 Glucose (Glutose) 15 gm Q15M PRN PO DECREASED GLUCOSE; Start 03/17/17 at 16:30 Glucose (Glutose) 22.5 gm Q15M PRN PO DECREASED GLUCOSE; Start 03/17/17 at 16: 30 Dextrose (D50w Syringe) 25 ml Q15M PRN IV DECREASED GLUCOSE; Start 03/17/17 at 16:30 Dextrose (D50w Syringe) 50 ml Q15M PRN IV DECREASED GLUCOSE; Start 03/17/17 at 16:30 Glucagon (Glucagen) 1 mg Q15M PRN IM DECREASED GLUCOSE; Start 03/17/17 at 16:30 Glucose (Glutose) 15 gm Q15M PRN BUCCAL DECREASED GLUCOSE; Start 03/17/17 at 16 :30 Metoprolol Tartrate (Lopressor) 50 mg BID PO Last administered on 03/22/17 08: 15; Admin Dose 50 MG; Start 03/18/17 at 09:00 Metoprolol Tartrate (Lopressor) 5 mg Q4H PRN IV HR>110 Hold SBP<100; Start at 23:00 Diphenhydramine HCl (Benadryl) 25 mg Q8H PRN IV pruritis/insomnia Last administered on 03/21/17 22:18; Admin Dose 25 MG; Start 03/17/17 at 23:30 Apixaban (Eliquis) 5 mg BID PO Last administered on 03/22/17 08:15; Admin Dose 5 MG; Start 03/18/17 at 21:00 Insulin Glargine (Lantus) 21 unit DAILY@20 SC Last administered on 03/21/17 20: 25; Admin Dose 21 UNIT; Start 03/19/17 at 20:00 Digoxin (Digoxin) 0.125 mg DAILY@13 PO ; Start 03/22/17 at 13:00 Diltiazem HCl (Cardizem Cd) 180 mg DAILY PO Last administered on 03/22/17 11:32 ; Admin Dose 180 MG; Start 03/21/17 at 21:00 DESI GUILLEN MD March 22, 2017 15:51
--- NOTE | 2017-03-22 18:26 | DS ---
DATE OF ADMISSION: 03/17/2017 DATE OF DISCHARGE: 03/22/2017 DISCHARGE DIAGNOSES: 1. Congestive cardiac failure. 2. Hyperglycemia, diabetes. 3. Underlying chronic obstructive pulmonary disease. 4. Probable obstructive sleep apnea. SUMMARY: A pleasant 71-year-old lady originally [facility] At [facility], had severe dyspnea and hypoxemia, brought to the emergency room for further ev aluation. She was found to be in acute congestive cardiac failure requiring aggressive diuresis and evaluation by Dr. Pablo Sheffield from cardiology. Echocardiogram was performed, demonstrated preser felice ejection fraction, but mild pulmonary hypertension with moderate concentric left ventricular hyp ertrophy. The patient was treated with diuretics. Had negative troponins. Had control of her atri al fibrillation with digoxin and diltiazem. She also was seen by diabetic education team who kindly provided the patient with , Humalog pens, SoloStar insulin pens, Fern pen needles and a gluco meter. DISCHARGE MEDICATIONS: 1. Digoxin 0.125 mg p.o. daily. 2. Diltiazem 180 mg p.o. daily. 3. Insulin Lantus 21 units daily. 4. Lasix 40 mg p.o. daily. 5. Insulin NovoLog 7 units with meals. 6. Eliquis 5 mg p.o. b.i.d. 7. Aspirin 81 mg p.o. daily. 8. Metoprolol 50 mg b.i.d. FOLLOWUP: Follow up with her primary care physician, Dr. Jesus Farrar, and myself, Dr. Yolanda quiles or pulmonary. CONDITION ON DISCHARGE: Stable. DIET: 1800 ADA. Dictated By: OLGA WATTS/SUSAN Conf#: [id number] DID#: [id number]
== END 2017-03-22 19:13 | disposition home or self-care (01) | DRG 292 ==
LOC: E/R 11:26 → MS4 14:39
PROVIDERS: ADMIT Family Medicine; ATTEND Family Medicine
DX: I11.0 Hypertensive heart disease with heart failure (principal); I48.92 Unspecified atrial flutter; E11.65 Type 2 diabetes mellitus with hyperglycemia; J44.1 Chronic obstructive pulmonary disease with (acute) exacerbation; Z68.42 Body mass index [BMI] 45.0-49.9, adult; I48.0 Paroxysmal atrial fibrillation; I50.33 Acute on chronic diastolic (congestive) heart failure; G47.33 Obstructive sleep apnea (adult) (pediatric); E66.01 Morbid (severe) obesity due to excess calories; F41.9 Anxiety disorder, unspecified; Z79.4 Long term (current) use of insulin; Z79.02 Long term (current) use of antithrombotics/antiplatelets; Z79.82 Long term (current) use of aspirin; Z71.3 Dietary counseling and surveillance; Z59.0 Homelessness
CPT/HCPCS: 36415; 71010; 80048; 80061; 82550; 82553; 82947; 82962; 83036; 83735; 83880; 84443; 84484; 85025; 85610; 85730; 93005; 93306; 94644; 96372; 96374; 96375; 96376; J1940; J1200; J1650; J1815; J2930; J3475

== ENCOUNTER 2018-01-26 07:23 | Day surgery (SDC) | END 2018-01-26 17:35 | disposition home or self-care (01) ==